=== PATIENT | male | born 1935 | race Caucasian/White ===

== ENCOUNTER 2021-11-14 19:59 | Inpatient (IN) | payer MEDICARE, BC ==
[2021-11-14] MEDS ORDERED: ACETAMINOPHEN TAB 325 MG TAB PO STA (21:39)
--- NOTE | 2021-11-14 21:51 | ED ---
Fever HPI - General Chief Complaint: Fever Stated Complaint: Blood problem, Difficulty Breathing, Cough Time Seen by Provider: 11/14/21 21:39 Source: patient Mode of arrival: wheelchair Limitations: no limitations - History of Present Illness Initial Comments: This patient is an 86-year-old man with history of lung cancer who presents to have evaluation for fever. The patient had received Q Blake infusion today at [facility] he had gone home and then this evening had developed a fever. The patient also has a little bit of cough. Most of the history is from the patient's son as the patient is very hard of hearing at the moment and appears to have some underlying delirium. Patient denies pain. No nausea or vomiting. No change in bowel movements or urination. Patient's son had phoned the patient's oncologist and they were instructed to go to the emergency department to have evaluation. MD Complaint: fever -: hour(s) Temperature Source: oral Context: on chemotherapy Associated Symptoms: cough Treatments Prior to Arrival: none - Related Data Home Medications Medication Instructions Recorded Confirmed Albuterol Sulfate [Albuterol 1 - 2 puff INHALATION RT-Q4H PRN 09/15/21 11/14/21 Sulfate Hfa] Apixaban [Eliquis] 5 mg PO BID 09/15/21 11/14/21 Cholecalciferol [Vitamin D3 (25 100 mcg PO DAILY 09/15/21 11/14/21 Mcg = 1000 Iu)] Ferrous Sulfate [Iron (65 MG 650 mg PO DAILY 09/15/21 11/14/21 Elemental)] Fluticasone Propion/Salmeterol 1 - 2 puff INHALATION RT-BID 09/15/21 11/14/21 [Fluticasone-Salmeterol 250-50] Folic Acid 0.8 mg PO DAILY 09/15/21 11/14/21 Nystatin 100,000 Unit/ml Susp 5 ml PO QID PRN 09/15/21 11/14/21 [Mycostatin Oral Susp] [place]-3 Fatty Acids/Fish Oil [Fish 1 cap PO W/LUNCH 09/15/21 11/14/21 Oil 1,000 mg Softgel] Tamsulosin HCl [Flomax] 0.4 mg PO HS 09/15/21 11/14/21 Vitamin A Acetate [Vitamin A] 10,000 unit PO W/LUNCH 09/15/21 11/14/21 Ipratropium Nebulized [Atrovent 0.5 mg INHALATION RT-QID 11/14/21 11/14/21 Nebulized 0.2 MG/ML] Allergies Allergy/AdvReac Type Severity Reaction Status Date / Time Sulfa (Sulfonamide Allergy Unknown Verified 11/14/21 22:29 Antibiotics) Review of Systems ROS Statement: Those systems with pertinent positive or pertinent negative responses have been documented in the HPI. ROS Other: All systems not noted in ROS Statement are negative. Constitutional: Reports: fever, chills, weakness Respiratory: Reports: cough. Denies: dyspnea, hemoptysis Cardiovascular: Denies: chest pain, edema, syncope Gastrointestinal: Denies: abdominal pain, vomiting, diarrhea Genitourinary: Denies: dysuria, hematuria Musculoskeletal: Denies: back pain Skin: Denies: rash Neurological: Denies: headache, weakness Past Medical History Past Medical History: Pneumonia Additional Past Medical History / Comment(s): liver cancer, lung cancer History of Any Multi-Drug Resistant Organisms: None Reported Past Surgical History: Tonsillectomy Additional Past Surgical History / Comment(s): liver surgery Past Psychological History: No Psychological Hx Reported Smoking Status: Former smoker Past Alcohol Use History: None Reported Past Drug Use History: None Reported - Past Family History Father Family Medical History: Cancer Additional Family Medical History / Comment(s): Throat cancer Mother History Unknown: Yes General Exam Limitations: no limitations General appearance: alert Head exam: Present: atraumatic, normocephalic Eye exam: Present: normal appearance. Absent: scleral icterus, conjunctival injection ENT exam: Present: normal oropharynx Neck exam: Present: normal inspection, full ROM. Absent: meningismus Respiratory exam: Present: respiratory distress, rales, rhonchi. Absent: normal lung sounds bilaterally, wheezes Cardiovascular Exam: Present: normal rhythm, tachycardia, normal heart sounds. Absent: systolic murmur, diastolic murmur, rubs, gallop GI/Abdominal exam: Present: soft. Absent: distended, tenderness, guarding, rebound, rigid, mass, pulsatile mass Extremities exam: Present: normal inspection, normal capillary refill. Absent: pedal edema, calf tenderness Back exam: Present: normal inspection. Absent: CVA tenderness (R), CVA tenderness (L) Neurological exam: Present: alert Skin exam: Present: warm, dry, intact, normal color. Absent: rash Course Vital Signs 11/14/21 11/14/21 11/14/21 20:37 22:00 23:30 Temperature 101 F H 99.8 F H 101.4 F H Pulse Rate 112 H 101 H 110 H Respiratory 32 H 30 H 28 H Rate Blood Pressure 101/56 117/61 109/58 O2 Sat by Pulse 91 L 94 L 93 L Oximetry Procedures - Sepsis Sepsis Focused Exam #1 Sepsis Focused Exam Date: 11/15/21 Sepsis Focused Exam Time: 02:00 Sepsis Focused Exam Complete: Yes Vital Signs & RN Notes Reviewed: Yes Capillary Refill: < 2 Seconds: Fingers Peripheral Pulses: Normal: Radial (R) Skin Color: Flushed Respiratory Exam: rhonchi Cardiovascular Exam: tachycardia Medical Decision Making - Lab Data Result diagrams: 11/16/21 05:18 11/16/21 05:18 Lab Results 11/14/21 11/14/21 11/14/21 Range/Units 22:43 22:43 22:43 WBC 13.2 H (3.8-10.6) k/uL RBC 4.32 (4.30-5.90) m/uL Hgb 10.7 L (13.0-17.5) gm/dL Hct 35.9 L (39.0-53.0) % MCV 83.2 D (80.0-100.0) fL MCH 24.8 L (25.0-35.0) pg MCHC 29.8 L (31.0-37.0) g/dL RDW 17.2 H (11.5-15.5) % Plt Count 436 (150-450) k/uL MPV 6.7 Neutrophils % 93 % Lymphocytes % 3 % Monocytes % 3 % Eosinophils % 0 % Basophils % 0 % Neutrophils # 12.2 H (1.3-7.7) k/uL Lymphocytes # 0.4 L (1.0-4.8) k/uL Monocytes # 0.4 (0-1.0) k/uL Eosinophils # 0.0 (0-0.7) k/uL Basophils # 0.1 (0-0.2) k/uL Hypochromasia Marked Anisocytosis Slight PT 11.6 (9.0-12.0) sec INR 1.1 (<1.2) APTT 22.9 (22.0-30.0) sec Sodium (137-145) mmol/L Potassium (3.5-5.1) mmol/L Chloride (98-107) mmol/L Carbon Dioxide (22-30) mmol/L Anion Gap mmol/L BUN (9-20) mg/dL Creatinine (0.66-1.25) mg/dL Est GFR (CKD-EPI)AfAm (>60 ml/min/1.73 sqM) Est GFR (CKD-EPI)NonAf (>60 ml/min/1.73 sqM) Glucose (74-99) mg/dL Plasma Lactic Acid [place] (0.7-2.0) mmol/L Calcium (8.4-10.2) mg/dL Total Bilirubin (0.2-1.3) mg/dL AST (17-59) U/L ALT (4-49) U/L Alkaline Phosphatase (38-126) U/L Total Protein (6.3-8.2) g/dL Albumin (3.5-5.0) g/dL Procalcitonin (0.02-0.09) ng/mL Urine Color Yellow Urine Appearance Clear (Clear) Urine pH 5.0 (5.0-8.0) Ur Specific Palmer 1.021 (1.001-1.035) Urine Protein Trace H (Negative) Urine Glucose (UA) Trace H (Negative) Urine Ketones Negative (Negative) Urine Blood Negative (Negative) Urine Nitrite Negative (Negative) Urine Bilirubin Negative (Negative) Urine Urobilinogen <2.0 (<2.0) mg/dL Ur Leukocyte Esterase Negative (Negative) Coronavirus (PCR) (Not Detectd) Influenza Type A RNA (Not Detectd) Influenza Type B (PCR) (Not Detectd) 11/14/21 11/14/21 11/14/21 Range/Units 22:43 22:43 22:43 WBC (3.8-10.6) k/uL RBC (4.30-5.90) m/uL Hgb (13.0-17.5) gm/dL Hct (39.0-53.0) % MCV (80.0-100.0) fL MCH (25.0-35.0) pg MCHC (31.0-37.0) g/dL RDW (11.5-15.5) % Plt Count (150-450) k/uL MPV Neutrophils % % Lymphocytes % % Monocytes % % Eosinophils % % Basophils % % Neutrophils # (1.3-7.7) k/uL Lymphocytes # (1.0-4.8) k/uL Monocytes # (0-1.0) k/uL Eosinophils # (0-0.7) k/uL Basophils # (0-0.2) k/uL Hypochromasia Anisocytosis PT (9.0-12.0) sec INR (<1.2) APTT (22.0-30.0) sec Sodium 133 L (137-145) mmol/L Potassium 4.3 (3.5-5.1) mmol/L Chloride 103 (98-107) mmol/L Carbon Dioxide 23 (22-30) mmol/L Anion Gap 7 mmol/L BUN 17 (9-20) mg/dL Creatinine 0.69 (0.66-1.25) mg/dL Est GFR (CKD-EPI)AfAm >90 (>60 ml/min/1.73 sqM) Est GFR (CKD-EPI)NonAf 85 (>60 ml/min/1.73 sqM) Glucose 111 H (74-99) mg/dL Plasma Lactic Acid [place] 1.7 (0.7-2.0) mmol/L Calcium 8.9 (8.4-10.2) mg/dL Total Bilirubin 0.5 (0.2-1.3) mg/dL AST 20 (17-59) U/L ALT 10 (4-49) U/L Alkaline Phosphatase 83 (38-126) U/L Total Protein 6.3 (6.3-8.2) g/dL Albumin 3.2 L (3.5-5.0) g/dL Procalcitonin (0.02-0.09) ng/mL Urine Color Urine Appearance (Clear) Urine pH (5.0-8.0) Ur Specific Palmer (1.001-1.035) Urine Protein (Negative) Urine Glucose (UA) (Negative) Urine Ketones (Negative) Urine Blood (Negative) Urine Nitrite (Negative) Urine Bilirubin (Negative) Urine Urobilinogen (<2.0) mg/dL Ur Leukocyte Esterase (Negative) Coronavirus (PCR) (Not Detectd) Influenza Type A RNA Not Detected (Not Detectd) Influenza Type B (PCR) Not Detected (Not Detectd) 11/14/21 11/14/21 Range/Units 22:43 22:43 WBC (3.8-10.6) k/uL RBC (4.30-5.90) m/uL Hgb (13.0-17.5) gm/dL Hct (39.0-53.0) % MCV (80.0-100.0) fL MCH (25.0-35.0) pg MCHC (31.0-37.0) g/dL RDW (11.5-15.5) % Plt Count (150-450) k/uL MPV Neutrophils % % Lymphocytes % % Monocytes % % Eosinophils % % Basophils % % Neutrophils # (1.3-7.7) k/uL Lymphocytes # (1.0-4.8) k/uL Monocytes # (0-1.0) k/uL Eosinophils # (0-0.7) k/uL Basophils # (0-0.2) k/uL Hypochromasia Anisocytosis PT (9.0-12.0) sec INR (<1.2) APTT (22.0-30.0) sec Sodium (137-145) mmol/L Potassium (3.5-5.1) mmol/L Chloride (98-107) mmol/L Carbon Dioxide (22-30) mmol/L Anion Gap mmol/L BUN (9-20) mg/dL Creatinine (0.66-1.25) mg/dL Est GFR (CKD-EPI)AfAm (>60 ml/min/1.73 sqM) Est GFR (CKD-EPI)NonAf (>60 ml/min/1.73 sqM) Glucose (74-99) mg/dL Plasma Lactic Acid [place] (0.7-2.0) mmol/L Calcium (8.4-10.2) mg/dL Total Bilirubin (0.2-1.3) mg/dL AST (17-59) U/L ALT (4-49) U/L Alkaline Phosphatase (38-126) U/L Total Protein (6.3-8.2) g/dL Albumin (3.5-5.0) g/dL Procalcitonin 0.82 H (0.02-0.09) ng/mL Urine Color Urine Appearance (Clear) Urine pH (5.0-8.0) Ur Specific Palmer (1.001-1.035) Urine Protein (Negative) Urine Glucose (UA) (Negative) Urine Ketones (Negative) Urine Blood (Negative) Urine Nitrite (Negative) Urine Bilirubin (Negative) Urine Urobilinogen (<2.0) mg/dL Ur Leukocyte Esterase (Negative) Coronavirus (PCR) Not Detected (Not Detectd) Influenza Type A RNA (Not Detectd) Influenza Type B (PCR) (Not Detectd) - EKG Data -: EKG Interpreted by Ct EKG shows normal: sinus rhythm, intervals (KS interval 221 ms, prolonged consistent with first-degree AV block. QRS duration 148 ms, prolonged consistent with a right bundle-branch block. QTC 49 ms, normal.), QRS complexes (There is a right bundle-branch block and a left anterior fascicular block.) Rate: tachycardia (Rate 106 bpm) Disposition Clinical Impression: Pneumonia, Sepsis Disposition: ADMITTED IP TO THIS HOSP Condition: Poor Is patient prescribed a controlled substance at d/c from ED?: No
--- NOTE | 2021-11-14 22:42 | XR ---
EXAMINATION TYPE: XR chest 1V portable DATE OF EXAM: 11/14/2021 COMPARISON: 09/18/2021 HISTORY: Fever TECHNIQUE: Single view FINDINGS: there is some airspace infiltrate right lower lobe. There is blunting right costophrenic angle. Heart is enlarged. Left lung is fairly clear. No heart failure. There is left central venous catheter with tip in the superior vena cava. IMPRESSION: Right lower lobe pneumonia and right pleural effusion without change. There is significant clearing o f left lower lobe pneumonia compared to old exam. No heart failure seen.
[2021-11-14 23:07] LABS: Anisocytosis Slight; Basophils # (A) 0.1 k/uL (0-0.2); Basophils % (A) 0 %; Eosinophils % (A) 0 %; HCT 35.9 % (39.0-53.0); HGB 10.7 gm/dL (13.0-17.5); Hypochromasia Marked; Lymphocytes # (A) 0.4 k/uL (1.0-4.8); Lymphocytes % (A) 3 %; MCH 24.8 pg (25.0-35.0); MCHC 29.8 g/dL (31.0-37.0); Mean Platelet Volume 6.7; Monocytes # (A) 0.4 k/uL (0-1.0); Monocytes % (A) 3 %; Neutrophils # (A) 12.2 k/uL (1.3-7.7); Neutrophils % (A) 93 %; Platelet Count 436 k/uL (150-450); RBC 4.32 m/uL (4.30-5.90); RDW 17.2 % (11.5-15.5); WBC 13.2 k/uL (3.8-10.6)
[2021-11-14 23:10] LABS: MCV 83.2 fL (80.0-100.0)
[2021-11-14 23:17] LABS: Appearance,Urine Clear (Clear); Bilirubin,Urine Negative (Negative); Blood,Urine Negative (Negative); Color,Urine Yellow; Glucose,Urine (UA) Trace (Negative); Ketones,Urine Negative (Negative); Leukocyte Esterase,Urine Negative (Negative); Nitrite,Urine Negative (Negative); Protein,Urine Trace (Negative); Specific Gravity,Urine 1.021 (1.001-1.035); Urobilinogen,Urine <2.0 mg/dL (<2.0)
[2021-11-14 23:19] LABS: ALT 10 U/L (4-49); AST 20 U/L (17-59); African American GFR (CKD) >90 (>60 ml/min/1.73 sqM); Albumin 3.2 g/dL (3.5-5.0); Alkaline Phosphatase 83 U/L (38-126); Anion Gap 7 mmol/L; Blood Urea Nitrogen 17 mg/dL (9-20); Calcium 8.9 mg/dL (8.4-10.2); Carbon Dioxide 23 mmol/L (22-30); Chloride 103 mmol/L (98-107); Glucose 111 mg/dL (74-99); Non-African American GFR(CKD) 85 (>60 ml/min/1.73 sqM); Potassium 4.3 mmol/L (3.5-5.1); Sodium 133 mmol/L (137-145); Total Bilirubin 0.5 mg/dL (0.2-1.3); Total Protein 6.3 g/dL (6.3-8.2)
[2021-11-14 23:20] LABS: INR 1.1 (<1.2); Partial Thromboplastin Time 22.9 sec (22.0-30.0); Prothrombin Time 11.6 sec (9.0-12.0)
[2021-11-14] MEDS: SODIUM CHLORIDE 0.9% 1,000 ML IV SCH (23:30)
[2021-11-15] MEDS: SODIUM CHLORIDE 0.9% 500 ML 500 ML IV SCH ×3 (00:25→01:35)
[2021-11-15] MEDS ORDERED: PNEUMONIA PROTOCOL UTILIZED 1 EACH MISC PO PRN (00:56)
[2021-11-15] MEDS ORDERED: AZITHROMYCIN 500 MG in SODIUM CHLORIDE 0.9% 250 ML IVPB STA (00:56)
[2021-11-15] MEDS: SODIUM CHLORIDE 0.9% 1,000 ML IV SCH ×3 (04:39→22:24)
[2021-11-15] MEDS ORDERED: IPRATROPIUM-ALBUTEROL 3 ML NEB INHALATION PRN ×2 (07:12)
[2021-11-15] MEDS ORDERED: ACETAMINOPHEN TAB 325 MG TAB PO PRN (07:12)
[2021-11-15] MEDS: CHOLECALCIFEROL 25 MCG (1000 IU) TABLET PO SCH (07:22)
[2021-11-15] MEDS: FOLIC ACID 1 MG TAB PO SCH (07:23)
[2021-11-15] MEDS: APIXABAN 5 MG TAB PO SCH ×2 (07:23→20:55)
[2021-11-15] MEDS: FERROUS SULFATE 325 MG TAB PO SCH ×2 (07:23→15:42)
[2021-11-15] MEDS: SYMBICORT 80-4.5 MCG INHALER INHALATION SCH ×2 (08:24→21:10)
[2021-11-15] MEDS: IPRATROPIUM-ALBUTEROL 3 ML NEB INHALATION SCH ×4 (08:25→21:10)
[2021-11-15 11:21] LABS: Anisocytosis Slight; Basophils # (A) 0.1 k/uL (0-0.2); Basophils % (A) 1 %; Eosinophils # (A) 0.1 k/uL (0-0.7); Eosinophils % (A) 1 %; HCT 33.5 % (39.0-53.0); HGB 9.4 gm/dL (13.0-17.5); Hypochromasia Marked; Lymphocytes # (A) 0.7 k/uL (1.0-4.8); Lymphocytes % (A) 5 %; MCH 24.3 pg (25.0-35.0); MCHC 28.1 g/dL (31.0-37.0); MCV 86.4 fL (80.0-100.0); Mean Platelet Volume 7.2; Monocytes # (A) 0.6 k/uL (0-1.0); Monocytes % (A) 4 %; Neutrophils # (A) 12.5 k/uL (1.3-7.7); Neutrophils % (A) 89 %; Platelet Count 369 k/uL (150-450); RBC 3.88 m/uL (4.30-5.90); RDW 17.1 % (11.5-15.5); WBC 13.9 k/uL (3.8-10.6)
[2021-11-15] MEDS ORDERED: NON FORMULARY DRUG (Omega-3 Fatty Acids/Fish Oil [Fish Oil 1,000 Mg Softgel] 1 EACH Capsul PO SCH (12:30)
--- NOTE | 2021-11-15 13:54 | P.HPIM ---
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 Patient had received chemoinfusion at [facility] and had gone home and later developed fever. Was also complaining of shortness of breath and cough. On admission T-max was 101.4. Patient was tachycardic and tachypneic and pulse ox 93% on room air. Chest x-ray showed right lower lobe pneumonia and right pleural effusion without change. There is significant clearing of left lower lobe pneumonia compared to old exam. No heart failure seen. Laboratory data showed WBC 13.2 hemoglobin 10.7 and platelets 436 RDW 17.2 Sodium 133 potassium 4.3 chloride 103 BUN 17 and creatinine 0.69 lactic acid 1.7 liver enzymes are not elevated albumin 3.2 urinalysis is negative for infection Coronavirus PCR, influenza A and B not detected. Procalcitonin is pending. patient is a poor historian and hard of hearing. Review of Systems complete review of systems could not be obtained from the patient except as per HPI. Past Medical History Past Medical History: COPD, Deep Vein Thrombosis (DVT), Pneumonia, Prostate Disorder, Pulmonary Embolus (PE) Additional Past Medical History / Comment(s): liver cancer, lung cancer, aspiration pneumonia, thrush History of Any Multi-Drug Resistant Organisms: None Reported Past Surgical History: Tonsillectomy Additional Past Surgical History / Comment(s): liver surgery, stomach surgery in 1999. Past Anesthesia/Blood Transfusion Reactions: No Reported Reaction Past Psychological History: No Psychological Hx Reported Additional Psychological History / Comment(s): Pt was residing in [place] but son moved pt [place] last fall 2020. Pt's spouse last 2020. Pt resides with his son and haider in law. Pt is normally alert and oriented to person, place and time. Son manages pt's medications and son states pt is pretty good with washing up and dressing. Smoking Status: Former smoker Past Alcohol Use History: None Reported Additional Past Alcohol Use History / Comment(s): Pt smoked in the 1960s. Past Drug Use History: None Reported - Past Family History Father Family Medical History: Cancer Additional Family Medical History / Comment(s): Throat cancer Mother History Unknown: Yes Medications and Allergies Home Medications Medication Instructions Recorded Confirmed Type Albuterol Sulfate [Albuterol 1 - 2 puff INHALATION RT-Q4H PRN 09/15/21 11/14/21 History Sulfate Hfa] Apixaban [Eliquis] 5 mg PO BID 09/15/21 11/14/21 History Cholecalciferol [Vitamin D3 (25 100 mcg PO DAILY 09/15/21 11/14/21 History Mcg = 1000 Iu)] Ferrous Sulfate [Iron (65 MG 650 mg PO DAILY 09/15/21 11/14/21 History Elemental)] Fluticasone Propion/Salmeterol 1 - 2 puff INHALATION RT-BID 09/15/21 11/14/21 History [Fluticasone-Salmeterol 250-50] Folic Acid 0.8 mg PO DAILY 09/15/21 11/14/21 History Nystatin 100,000 Unit/ml Susp 5 ml PO QID PRN 09/15/21 11/14/21 History [Mycostatin Oral Susp] [place]-3 Fatty Acids/Fish Oil [Fish 1 cap PO W/LUNCH 09/15/21 11/14/21 History Oil 1,000 mg Softgel] Tamsulosin HCl [Flomax] 0.4 mg PO HS 09/15/21 11/14/21 History Vitamin A Acetate [Vitamin A] 10,000 unit PO W/LUNCH 09/15/21 11/14/21 History Ipratropium Nebulized [Atrovent 0.5 mg INHALATION RT-QID 11/14/21 11/14/21 History Nebulized 0.2 MG/ML] Allergies Allergy/AdvReac Type Severity Reaction Status Date / Time Sulfa (Sulfonamide Allergy Unknown Verified 11/14/21 22:29 Antibiotics) Physical Exam Vitals: Vital Signs Temp Pulse Pulse Resp BP BP Pulse Ox 11/15/21 08:34 78 16 11/15/21 08:25 77 16 11/15/21 07:54 97.9 F 88 17 102/64 95 11/15/21 04:11 97.5 F L 91 20 101/62 94 L 11/15/21 02:44 98.5 F 90 20 92/59 93 L 11/15/21 01:47 98.8 F 89 24 110/56 93 L 11/14/21 23:30 101.4 F H 110 H 28 H 109/58 93 L 11/14/21 22:00 99.8 F H 101 H 30 H 117/61 94 L 11/14/21 20:37 101 F H 112 H 32 H 101/56 91 L Intake and Output 11/14/21 11/15/21 11/15/21 22:59 06:59 14:59 Other: # Voids 2 Weight 71.214 kg 71.214 kg PHYSICAL EXAMINATION: Patient is lying in the bed comfortably, no acute distress, awake alert and oriented.hard of hearing.. HEENT: Normocephalic. Neck is supple. Pupils reactive. Nostrils clear. Oral cavity is moist. Neck reveals no JVD, carotid bruits, or thyromegaly. CHEST EXAMINATION: Trachea is central. Symmetrical expansion. bibasilar crackles and no wheezing.. CARDIAC: Normal S1, S2 with no gallops. No murmurs ABDOMEN: Soft. Bowel sounds normal. No organomegaly. No abdominal bruits. Extremities: reveal no edema. No clubbing or cyanosis Neurologically awake, alert, oriented x2-3 with well-coordinated movements. hard of hearing. No focal deficits noted Skin: No rash or skin lesions. Psychiatric: Coperative. could not be assessed completely. Musculoskeletal: No joint swelling or deformity. Normal range of motion. Results CBC & Chem 7: 11/15/21 10:41 11/14/21 22:43 Labs: Abnormal Lab Results - Last 24 Hours (Table) 11/14/21 11/14/21 11/14/21 Range/Units 22:43 22:43 22:43 WBC 13.2 H (3.8-10.6) k/uL Hgb 10.7 L (13.0-17.5) gm/dL Hct 35.9 L (39.0-53.0) % MCH 24.8 L (25.0-35.0) pg MCHC 29.8 L (31.0-37.0) g/dL RDW 17.2 H (11.5-15.5) % Neutrophils # 12.2 H (1.3-7.7) k/uL Lymphocytes # 0.4 L (1.0-4.8) k/uL Sodium 133 L (137-145) mmol/L Glucose 111 H (74-99) mg/dL Albumin 3.2 L (3.5-5.0) g/dL Urine Protein Trace H (Negative) Urine Glucose (UA) Trace H (Negative) Thrombosis Risk Factor Assmnt - DVT/VTE Prophylaxis DVT/VTE Prophylaxis: Pharmacologic Prophylaxis ordered - Choose All That Apply Any of the Below Risk Factors Present?: Yes Each Factor Represents 1 point: Abnormal pulmonary function (COPD), Serious lung disease incl. pneumonia (< 1month) Other Risk Factors: Yes Each Risk Factor Represents 3 Points: Age 75 years or older, History of DVT/PE Other congenital or acquired thrombophilia - If yes, enter type in comment: No Thrombosis Risk Factor Assessment Total Risk Factor Score: 8 Thrombosis Risk Factor Assessment Level: High Risk Assessment and Plan Assessment: Right lower lobe pneumonia and pleural effusion. Possible aspiration. Sepsis secondary to above History of DVT/PE on anticoagulation Lung cancer on chemo/immunotherapy at [facility] COPD Previous history of smoking DVT prophylaxis with heparin subcu Plan: Patient was given a dose of ceftriaxone and azithromycin in the ER. Antibiotics will be changed to Zosyn and speech and swallow evaluation consult for possible slow aspiration. Continue with duo nebs as needed. Gentle IV hydration and monitor closely. Prognosis guarded at this time. Time with Patient: Greater than 30
[2021-11-15] MEDS: AZITHROMYCIN 500 MG TAB PO SCH (14:53)
[2021-11-15] MEDS: PIPERACILLIN-TAZOBACTAM 3.375 GM in SODIUM CHLORIDE 0.9% 100 ML IVPB SCH ×2 (15:42→23:43)
[2021-11-15] MEDS: TAMSULOSIN 0.4 MG CAP.ER.24H PO SCH (20:55)
--- NOTE | 2021-11-16 08:37 | XR ---
EXAMINATION TYPE: XR chest 2V DATE OF EXAM: 11/16/2021 COMPARISON: NONE TECHNIQUE: PA and lateral views submitted. HISTORY: Cough FINDINGS: Mediport catheter noted with bilateral infiltrate and pleural effusion. Surgical changes in the abdom en. Biapical pleural thickening. Diffuse osteopenia and arthropathy shoulders. No pneumothorax. Under lying COPD noted. Degenerative changes spine. IMPRESSION: 1. Diffuse pleural-parenchymal changes correlate for CHF versus diffuse pneumonia.
[2021-11-16] MEDS: IPRATROPIUM-ALBUTEROL 3 ML NEB INHALATION SCH ×4 (08:40→20:04)
[2021-11-16] MEDS: SYMBICORT 80-4.5 MCG INHALER INHALATION SCH ×2 (08:45→20:04)
[2021-11-16 09:00] LABS: Basophils # (A) 0.05 X 10*3/uL (0.00-0.10); Basophils % (A) 0.7 %; Eosinophils # (A) 0.18 X 10*3/uL (0.04-0.35); Eosinophils % (A) 2.6 %; HCT 29.5 % (39.6-50.0); HGB 8.5 g/dL (13.0-17.0); Immature Grans, Automated 0.1 %; Lymphocytes # (A) 0.79 X 10*3/uL (0.90-5.00); Lymphocytes % (A) 11.6 %; MCH 24.1 pg (27.0-32.0); MCHC 28.8 g/dL (32.0-37.0); MCV 83.6 fL (80.0-97.0); Mean Platelet Volume 9.4 fL (9.5-12.2); Monocytes # (A) 0.56 X 10*3/uL (0.20-1.00); Monocytes % (A) 8.2 %; NRBC Per 100 WBC 0 /100 WBCS (0.0-0.0); Neutrophils # (A) 5.22 X 10*3/uL (1.80-7.70); Neutrophils % (A) 76.8 %; Platelet Count 348 X 10*3/uL (140-440); RBC 3.53 X 10*6/uL (4.40-5.60); RDW 17.5 % (11.5-14.5); WBC 6.81 X 10*3/uL (4.50-10.00)
[2021-11-16 10:14] LABS: African American GFR (CKD) 97.7 (60.0-200.0); Anion Gap 9.5 mmol/L (10.00-18.00); BUN/Creat Ratio 15.71 Ratio (12.00-20.00); Calcium 8.6 mg/dL (8.7-10.3); Carbon Dioxide 23.5 mmol/L (20.0-27.5); Non-African American GFR(CKD) 84.3 (60.0-200.0); Potassium 4.3 mmol/L (3.5-5.5)
[2021-11-16] MEDS: FOLIC ACID 1 MG TAB PO SCH (11:00)
[2021-11-16] MEDS: CHOLECALCIFEROL 25 MCG (1000 IU) TABLET PO SCH (11:00)
[2021-11-16] MEDS: FERROUS SULFATE 325 MG TAB PO SCH ×2 (11:00→17:24)
[2021-11-16] MEDS: PIPERACILLIN-TAZOBACTAM 3.375 GM in SODIUM CHLORIDE 0.9% 100 ML IVPB SCH ×2 (11:00→17:24)
[2021-11-16] MEDS: APIXABAN 5 MG TAB PO SCH ×2 (11:00→20:40)
[2021-11-16] MEDS: AZITHROMYCIN 500 MG TAB PO SCH (11:03)
[2021-11-16] MEDS: TAMSULOSIN 0.4 MG CAP.ER.24H PO SCH (20:40)
[2021-11-17] MEDS: PIPERACILLIN-TAZOBACTAM 3.375 GM in SODIUM CHLORIDE 0.9% 100 ML IVPB SCH ×2 (00:05→09:09)
[2021-11-17 02:06] VITALS: RESP 17; TEMP 97.6
[2021-11-17 07:52] VITALS: BP 101/64
[2021-11-17] MEDS: IPRATROPIUM-ALBUTEROL 3 ML NEB INHALATION SCH ×2 (08:23→11:55)
[2021-11-17] MEDS: SYMBICORT 80-4.5 MCG INHALER INHALATION SCH (08:43)
[2021-11-17] MEDS: FERROUS SULFATE 325 MG TAB PO SCH (09:10)
[2021-11-17] MEDS: APIXABAN 5 MG TAB PO SCH (09:10)
[2021-11-17] MEDS: FOLIC ACID 1 MG TAB PO SCH (09:10)
[2021-11-17] MEDS: CHOLECALCIFEROL 25 MCG (1000 IU) TABLET PO SCH (09:10)
[2021-11-17 09:25] LABS: Basophils # (A) 0.04 X 10*3/uL (0.00-0.10); Basophils % (A) 0.6 %; Eosinophils % (A) 4.2 %; HCT 31.4 % (39.6-50.0); HGB 9.4 g/dL (13.0-17.0); Immature Grans, Automated 0.6 %; Lymphocytes # (A) 0.83 X 10*3/uL (0.90-5.00); Lymphocytes % (A) 11.5 %; MCH 24.9 pg (27.0-32.0); MCHC 29.9 g/dL (32.0-37.0); MCV 83.3 fL (80.0-97.0); Mean Platelet Volume 9.7 fL (9.5-12.2); Monocytes # (A) 0.56 X 10*3/uL (0.20-1.00); Monocytes % (A) 7.8 %; NRBC Per 100 WBC 0 /100 WBCS (0.0-0.0); Neutrophils # (A) 5.44 X 10*3/uL (1.80-7.70); Neutrophils % (A) 75.3 %; Platelet Count 357 X 10*3/uL (140-440); RBC 3.77 X 10*6/uL (4.40-5.60); RDW 17.4 % (11.5-14.5); WBC 7.21 X 10*3/uL (4.50-10.00)
[2021-11-17 09:26] LABS: Anion Gap 8.6 mmol/L (10.00-18.00); BUN/Creat Ratio 12.17 Ratio (12.00-20.00); Blood Urea Nitrogen 7.3 mg/dL (9.0-27.0); Calcium 8.7 mg/dL (8.7-10.3); Carbon Dioxide 25.4 mmol/L (20.0-27.5); Non-African American GFR(CKD) 89.8 (60.0-200.0)
--- NOTE | 2021-11-17 10:38 | P.PN ---
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 Patient had received chemoinfusion at [facility] and had gone home and later developed fever. Was also complaining of shortness of breath and cough. On admission T-max was 101.4. Patient was tachycardic and tachypneic and pulse ox 93% on room air. Chest x-ray showed right lower lobe pneumonia and right pleural effusion without change. There is significant clearing of left lower lobe pneumonia compared to old exam. No heart failure seen. Laboratory data showed WBC 13.2 hemoglobin 10.7 and platelets 436 RDW 17.2 Sodium 133 potassium 4.3 chloride 103 BUN 17 and creatinine 0.69 lactic acid 1.7 liver enzymes are not elevated albumin 3.2 urinalysis is negative for infection Coronavirus PCR, influenza A and B not detected. Procalcitonin is pending. patient is a poor historian and hard of hearing. 11/16/2021. Patient is currently sitting up in the chair comfortably. Awake alert and oriented x3. Breathing status is better today. Patient has been afebrile. No nausea vomiting abdominal pain or diarrhea. Patient was seen by speech and swallow evaluation and recommends dysphagia level 2 diet and honey thick liquids and aspiration precautions. Otherwise patient is being continued on antibiotics in the form of Zosyn. Laboratory data showed WBC 6.8 hemoglobin 8.5 and platelets 348 sodium 138 potassium 4.3 chloride 105 BUN 11 and creatinine 0.7 and calcium 8.6. Procalcitonin level was 0.82. Current medications reviewed. Objective - Vital Signs Vital signs: Vital Signs Temp 98.0 F 11/16/21 14:00 Pulse 80 11/16/21 14:00 Resp 21 11/16/21 14:00 BP 131/64 11/16/21 14:00 Pulse Ox 93 L 11/16/21 14:00 Intake & Output 11/15/21 11/16/21 11/16/21 18:59 06:59 18:59 Output Total 300 500 Balance -300 -500 Output: Urine 300 500 Other: # Voids 1 # Bowel Movements 1 - Exam PHYSICAL EXAMINATION: Patient is lying in the bed comfortably, no acute distress, awake alert and o riented.hard of hearing.. HEENT: Normocephalic. Neck is supple. Pupils reactive. Nostrils clear. Oral cavity is moist. Neck reveals no JVD, carotid bruits, or thyromegaly. CHEST EXAMINATION: Trachea is central. Symmetrical expansion. bibasilar improved air entry and no wheezing.. CARDIAC: Normal S1, S2 with no gallops. No murmurs ABDOMEN: Soft. Bowel sounds normal. No organomegaly. No abdominal bruits. Extremities: reveal no edema. No clubbing or cyanosis Neurologically awake, alert, oriented x2-3 with well-coordinated movements. hard of hearing. No focal deficits noted Skin: No rash or skin lesions. Psychiatric: Coperative. could not be assessed completely. Musculoskeletal: No joint swelling or deformity. Normal range of motion. - Labs CBC & Chem 7: 11/17/21 04:52 11/17/21 04:52 Labs: Abnormal Lab Results - Last 24 Hours (Table) 11/14/21 11/16/21 11/16/21 Range/Units 22:43 05:18 05:18 RBC 3.53 L (4.40-5.60) X 10*6/uL Hgb 8.5 L (13.0-17.0) g/dL Hct 29.5 L (39.6-50.0) % MCH 24.1 L (27.0-32.0) pg MCHC 28.8 L (32.0-37.0) g/dL RDW 17.5 H (11.5-14.5) % MPV 9.4 L (9.5-12.2) fL Lymphocytes # 0.79 L (0.90-5.00) X 10*3/uL Anion Gap 9.50 L (10.00-18.00) mmol/L Calcium 8.6 L (8.7-10.3) mg/dL Procalcitonin 0.82 H (0.02-0.09) ng/mL Microbiology - Last 24 Hours (Table) 11/14/21 23:02 Blood Culture - Preliminary Blood No Growth after 24 hours 11/14/21 22:47 Blood Culture - Preliminary Blood No Growth after 24 hours 11/15/21 17:01 Gram Stain - Preliminary Sputum Sputum Culture - Preliminary Assessment and Plan Assessment: Right lower lobe pneumonia and pleural effusion. Possible aspiration. Sepsis secondary to above History of DVT/PE on anticoagulation Lung cancer on chemo/immunotherapy at [facility] COPD Previous history of smoking DVT prophylaxis with heparin subcu Plan: Patient was given a dose of ceftriaxone and azithromycin in the ER. Antibiotics will be changed to Zosyn and speech and swallow evaluation consult for possible slow aspiration. A hazel was recommended dysphagia level II diet and aspiration precautions. Continue with duo nebs as needed. IV fluids have been discontinued and increase oral intake. PTOT consult and possible discharge in next 24-48 hours.. Prognosis guarded at this time. Time with Patient: Greater than 30
[2021-11-17 12:10] VITALS: PULSE 77
== END 2021-11-17 14:30 | disposition home health service (06) | DRG 871 ==
LOC: EC 19:59 → 4SSUR 11-15 00:56
PROVIDERS: ADMIT Hospitalist; ATTEND Hospitalist
DX: A41.9 Sepsis, unspecified organism (principal); J18.9 Pneumonia, unspecified organism; J69.0 Pneumonitis due to inhalation of food and vomit; J44.0 Chronic obstructive pulmonary disease with (acute) lower respiratory infection; C34.90 Malignant neoplasm of unspecified part of unspecified bronchus or lung; J91.8 Pleural effusion in other conditions classified elsewhere; Z20.822 Contact with and (suspected) exposure to COVID-19; H91.90 Unspecified hearing loss, unspecified ear; N40.0 Benign prostatic hyperplasia without lower urinary tract symptoms; Z86.718 Personal history of other venous thrombosis and embolism; Z86.711 Personal history of pulmonary embolism; Z87.891 Personal history of nicotine dependence; Z85.05 Personal history of malignant neoplasm of liver; Z85.118 Personal history of other malignant neoplasm of bronchus and lung; Z79.01 Long term (current) use of anticoagulants; Z80.8 Family history of malignant neoplasm of other organs or systems
CPT/HCPCS: 36415; 71045; 71046; 80048; 80053; 81003; 83605; 84145; 85025; 85610; 85730; 87040; 87070; 87205; 87502; 87635; 93005; 94640; 96365; 96375; 99284; 99285

== ENCOUNTER 2022-06-16 02:04 | Inpatient (IN) | payer MEDICARE, BC ==
[2022-06-16] MEDS ORDERED: METOPROLOL TARTRATE 5 MG/5 ML VIAL IVP STA ×2 (02:06→02:27)
[2022-06-16] MEDS ORDERED: MORPHINE SULFATE 4 MG/ML SYRINGE IV STA (02:06)
[2022-06-16] MEDS ORDERED: SODIUM CHLORIDE 0.9% 1,000 ML IV STA (02:06)
[2022-06-16] MEDS ORDERED: SODIUM CHLORIDE 0.9% 500 ML 500 ML IV STA (02:06)
--- NOTE | 2022-06-16 02:18 | ED ---
Weakness HPI - General Chief complaint: Shortness of Breath Stated complaint: STEMI Time Seen by Provider: 06/16/22 02:05 Source: EMS, RN notes reviewed, old records reviewed Mode of arrival: EMS - History of Present Illness Initial comments: This is an 87-year-old male to the emergency department for evaluation severe shortness of breath increased cough and congestion worsening weakness chest pain. Patient is short of breath not answer questions well and is in significant distress so is a poor historian MD Complaint: generalized weakness, lack of energy, difficulty walking -: days(s) Location: generalized Severity: severe Severity scale (1-10): 9 Quality: constant Consistency: constant Improves with: none Worsens with: none Context: history of similar Associated Symptoms: chest pain, confusion, shortness of breath - Related Data Home Medications Medication Instructions Recorded Confirmed Ipratropium-Albuterol Nebulize 3 ml INHALATION RT-QID PRN 06/16/22 06/16/22 [Duoneb 0.5 mg-3 mg/3 ml Soln] Previous Rx's Medication Instructions Recorded Ipratropium-Albuterol Nebulize 3 ml INHALATION RT-QID each 06/20/22 [Duoneb 0.5 mg-3 mg/3 ml Soln] Lidocaine Viscous 2% [Xylocaine 30 ml PO TID ml 06/20/22 Viscous] Mag Hydrox/Al Hydrox/Simeth 30 ml PO TID ml 06/20/22 [Maalox] Allergies Allergy/AdvReac Type Severity Reaction Status Date / Time Sulfa (Sulfonamide Allergy Unknown Verified 06/16/22 12:38 Antibiotics) Review of Systems ROS Statement: Those systems with pertinent positive or pertinent negative responses have been documented in the HPI. ROS Other: All systems not noted in ROS Statement are negative. Past Medical History Past Medical History: Pneumonia Additional Past Medical History / Comment(s): liver cancer, lung cancer History of Any Multi-Drug Resistant Organisms: None Reported Past Surgical History: Tonsillectomy Additional Past Surgical History / Comment(s): liver surgery Past Anesthesia/Blood Transfusion Reactions: No Reported Reaction Past Psychological History: No Psychological Hx Reported Smoking Status: Former smoker Past Alcohol Use History: None Reported Past Drug Use History: None Reported - Past Family History Father Family Medical History: Cancer Additional Family Medical History / Comment(s): Throat cancer Mother History Unknown: Yes General Exam General appearance: alert, anxious, in distress Head exam: Present: atraumatic, normocephalic, normal inspection Eye exam: Present: normal appearance, PERRL, EOMI. Absent: scleral icterus, conjunctival injection, periorbital swelling ENT exam: Present: normal exam, mucous membranes moist Neck exam: Present: normal inspection. Absent: tenderness, meningismus, lymphadenopathy Respiratory exam: Present: respiratory distress, wheezes, rales, accessory muscl e use, decreased breath sounds, prolonged expiratory. Absent: rhonchi, stridor Cardiovascular Exam: Present: normal rhythm, tachycardia, normal heart sounds. Absent: systolic murmur, diastolic murmur, rubs, gallop, clicks GI/Abdominal exam: Present: soft, normal bowel sounds. Absent: distended, tenderness, guarding, rebound, rigid Extremities exam: Present: normal inspection, full ROM, normal capillary refill. Absent: tenderness, pedal edema, joint swelling, calf tenderness Back exam: Present: normal inspection Neurological exam: Present: alert, oriented X3, CN II-XII intact Psychiatric exam: Present: normal affect, normal mood Skin exam: Present: warm, dry, intact, normal color. Absent: rash Course Vital Signs 06/16/22 06/16/22 06/16/22 02:05 02:09 02:20 Temperature 98.2 F Pulse Rate 135 H 113 H Respiratory 19 30 H 38 H Rate Blood Pressure 109/61 103/57 O2 Sat by Pulse 96 95 Oximetry 06/16/22 06/16/22 06/16/22 02:30 02:37 02:40 Temperature Pulse Rate 103 H 100 101 H Respiratory 30 H 20 24 Rate Blood Pressure 96/58 96/58 97/57 O2 Sat by Pulse 95 95 96 Oximetry 06/16/22 06/16/22 06/16/22 03:00 03:30 04:00 Temperature Pulse Rate 102 H 102 H 104 H Respiratory 20 20 14 Rate Blood Pressure 102/55 88/50 101/59 O2 Sat by Pulse 95 96 96 Oximetry 06/16/22 06/16/22 06/16/22 04:30 05:00 05:30 Temperature Pulse Rate 104 H 101 H 91 Respiratory 16 19 20 Rate Blood Pressure 96/57 100/59 98/61 O2 Sat by Pulse 94 L 96 96 Oximetry 06/16/22 06/16/22 06/16/22 06:00 06:30 07:00 Temperature Pulse Rate 90 89 91 Respiratory 16 19 20 Rate Blood Pressure 101/56 99/59 102/60 O2 Sat by Pulse 96 96 95 Oximetry 06/16/22 06/16/22 06/16/22 07:40 07:49 08:00 Temperature Pulse Rate 101 H 103 H 104 H Respiratory 26 H Rate Blood Pressure 110/65 O2 Sat by Pulse 95 94 L Oximetry 06/16/22 06/16/22 06/16/22 09:00 11:36 11:45 Temperature Pulse Rate 105 H 104 H 104 H Respiratory 36 H Rate Blood Pressure 106/63 O2 Sat by Pulse 93 L Oximetry 06/16/22 06/16/22 06/16/22 16:35 16:47 17:03 Temperature Pulse Rate 92 96 78 Respiratory 24 Rate Blood Pressure O2 Sat by Pulse 99 Oximetry - Reevaluation(s) Reevaluation #1: 06/15/22 Medical record is reviewed Patient symptoms improved here in the ER Patient informed of results and questions answered Medical Decision Making - Medical Decision Making 87 male to the emergency department for evaluation of chest pain. Patient is found to have pneumonia with pulmonary edema and low oxygen. - Lab Data Result diagrams: 06/19/22 03:43 06/20/22 05:53 Lab Results 06/16/22 06/16/22 06/16/22 Range/Units 02:09 02:09 02:09 WBC 24.2 H (3.8-10.6) k/uL RBC 5.33 (4.30-5.90) m/uL Hgb 14.9 (13.0-17.5) gm/dL Hct 47.5 (39.0-53.0) % MCV 89.1 (80.0-100.0) fL MCH 27.9 (25.0-35.0) pg MCHC 31.3 (31.0-37.0) g/dL RDW 14.4 (11.5-15.5) % Plt Count 327 (150-450) k/uL MPV 8.1 Neutrophils % 89 % Lymphocytes % 6 % Monocytes % 4 % Eosinophils % 1 % Basophils % 1 % Neutrophils # 21.5 H (1.3-7.7) k/uL Lymphocytes # 1.4 (1.0-4.8) k/uL Monocytes # 0.9 (0-1.0) k/uL Eosinophils # 0.2 (0-0.7) k/uL Basophils # 0.1 (0-0.2) k/uL Hypochromasia Marked PT 15.2 H (9.0-12.0) sec INR 1.5 H (<1.2) APTT 25.2 (22.0-30.0) sec Sodium (137-145) mmol/L Potassium (3.5-5.1) mmol/L Chloride (98-107) mmol/L Carbon Dioxide (22-30) mmol/L Anion Gap mmol/L BUN (9-20) mg/dL Creatinine (0.66-1.25) mg/dL Est GFR (CKD-EPI)AfAm (>60 ml/min/1.73 sqM) Est GFR (CKD-EPI)NonAf (>60 ml/min/1.73 sqM) Glucose (74-99) mg/dL Calcium (8.4-10.2) mg/dL Phosphorus (2.5-4.5) mg/dL Magnesium (1.6-2.3) mg/dL Total Bilirubin (0.2-1.3) mg/dL AST (17-59) U/L ALT (4-49) U/L Alkaline Phosphatase (38-126) U/L Troponin I <0.012 (0.000-0.034) ng/mL NT-Pro-B Natriuret Pep pg/mL Total Protein (6.3-8.2) g/dL Albumin (3.5-5.0) g/dL 06/16/22 06/16/22 Range/Units 02:09 02:40 WBC (3.8-10.6) k/uL RBC (4.30-5.90) m/uL Hgb (13.0-17.5) gm/dL Hct (39.0-53.0) % MCV (80.0-100.0) fL MCH (25.0-35.0) pg MCHC (31.0-37.0) g/dL RDW (11.5-15.5) % Plt Count (150-450) k/uL MPV Neutrophils % % Lymphocytes % % Monocytes % % Eosinophils % % Basophils % % Neutrophils # (1.3-7.7) k/uL Lymphocytes # (1.0-4.8) k/uL Monocytes # (0-1.0) k/uL Eosinophils # (0-0.7) k/uL Basophils # (0-0.2) k/uL Hypochromasia PT (9.0-12.0) sec INR (<1.2) APTT (22.0-30.0) sec Sodium 146 H (137-145) mmol/L Potassium 4.6 (3.5-5.1) mmol/L Chloride 111 H (98-107) mmol/L Carbon Dioxide 18 L (22-30) mmol/L Anion Gap 17 mmol/L BUN 35 H (9-20) mg/dL Creatinine 0.72 (0.66-1.25) mg/dL Est GFR (CKD-EPI)AfAm >90 (>60 ml/min/1.73 sqM) Est GFR (CKD-EPI)NonAf 83 (>60 ml/min/1.73 sqM) Glucose 123 H (74-99) mg/dL Calcium 9.6 (8.4-10.2) mg/dL Phosphorus 4.7 H (2.5-4.5) mg/dL Magnesium 2.1 (1.6-2.3) mg/dL Total Bilirubin 1.6 H (0.2-1.3) mg/dL AST 34 (17-59) U/L ALT 12 (4-49) U/L Alkaline Phosphatase 95 (38-126) U/L Troponin I (0.000-0.034) ng/mL NT-Pro-B Natriuret Pep 439 pg/mL Total Protein 6.2 L (6.3-8.2) g/dL Albumin 3.2 L (3.5-5.0) g/dL - Radiology Data Radiology results: report reviewed (Chest x-rays positive for pulmonary edema and pneumonia), image reviewed Critical Care Time Critical Care Time: Yes Total Critical Care Time: 31 Disposition Clinical Impression: Acute pulmonary edema, Community acquired pneumonia, Hypoxia, Pneumonia, NSTEMI (non-ST elevated myocardial infarction) Disposition: HOME SELF-CARE Condition: Fair Is patient prescribed a controlled substance at d/c from ED?: No Time of Disposition: 04:10
[2022-06-16 02:23] LABS: Basophils # (A) 0.1 k/uL (0-0.2); Basophils % (A) 1 %; Eosinophils # (A) 0.2 k/uL (0-0.7); Eosinophils % (A) 1 %; HCT 47.5 % (39.0-53.0); HGB 14.9 gm/dL (13.0-17.5); Hypochromasia Marked; Lymphocytes # (A) 1.4 k/uL (1.0-4.8); Lymphocytes % (A) 6 %; MCH 27.9 pg (25.0-35.0); MCHC 31.3 g/dL (31.0-37.0); MCV 89.1 fL (80.0-100.0); Mean Platelet Volume 8.1; Monocytes # (A) 0.9 k/uL (0-1.0); Monocytes % (A) 4 %; Neutrophils # (A) 21.5 k/uL (1.3-7.7); Neutrophils % (A) 89 %; Platelet Count 327 k/uL (150-450); RBC 5.33 m/uL (4.30-5.90); RDW 14.4 % (11.5-15.5); WBC 24.2 k/uL (3.8-10.6)
[2022-06-16 02:44] LABS: INR 1.5 (<1.2); Partial Thromboplastin Time 25.2 sec (22.0-30.0); Prothrombin Time 15.2 sec (9.0-12.0)
[2022-06-16 03:11] LABS: ALT 12 U/L (4-49); African American GFR (CKD) >90 (>60 ml/min/1.73 sqM); Albumin 3.2 g/dL (3.5-5.0); Anion Gap 17 mmol/L; Blood Urea Nitrogen 35 mg/dL (9-20); Calcium 9.6 mg/dL (8.4-10.2); Carbon Dioxide 18 mmol/L (22-30); Chloride 111 mmol/L (98-107); Glucose 123 mg/dL (74-99); Non-African American GFR(CKD) 83 (>60 ml/min/1.73 sqM); Sodium 146 mmol/L (137-145); Total Bilirubin 1.6 mg/dL (0.2-1.3); Total Protein 6.2 g/dL (6.3-8.2)
[2022-06-16 03:13] LABS: AST 34 U/L (17-59); Alkaline Phosphatase 95 U/L (38-126); Magnesium 2.1 mg/dL (1.6-2.3); Phosphorus 4.7 mg/dL (2.5-4.5); Potassium 4.6 mmol/L (3.5-5.1)
--- NOTE | 2022-06-16 03:21 | XR ---
EXAMINATION TYPE: XR chest 1V portable DATE OF EXAM: 06/16/2022 COMPARISON: 11/16/2021 HISTORY: Chest pain TECHNIQUE: Single view FINDINGS: Heart is enlarged. There is some pulmonary interstitial and airspace edema. There are chest leads. There is left-sided central venous catheter with tip in the superior vena cava. No definite p leural effusion. IMPRESSION: There is some patchy pulmonary edema which is increased compared to the old exam and coul d be congestive heart failure or RDS.
[2022-06-16] MEDS ORDERED: PNEUMONIA PROTOCOL UTILIZED 1 EACH MISC PO PRN (04:03)
[2022-06-16] MEDS ORDERED: AZITHROMYCIN 500 MG in SODIUM CHLORIDE 0.9% 250 ML IVPB STA (04:03)
[2022-06-16] MEDS: IPRATROPIUM-ALBUTEROL 3 ML NEB INHALATION SCH ×4 (07:37→20:06)
--- NOTE | 2022-06-16 10:22 | P.CRDCN ---
History of Present Illness Consult date: 06/16/22 Consult reason: congestive heart failure History of present illness: HISTORY OF PRESENTING ILLNESS This is an 87-year-old male with past medical history significant for DVT and pulmonary embolism, liver cancer, COPD, BPH, former tobacco use. 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 We have been asked to see in consultation for heart failure. Patient is a poor historian and unable to obtain any information from the patient. Chart is reviewed patient assessed. DIAGNOSTICS EKG reveals sinus tachycardia, HR 103, right bundle branch block, first degree AV block, no acute ST-T wave abnormalities Chest xray -patchy pulmonary edema which is increased compared to old exam and could be congestive heart failure or RDS Laboratory reviewed: WBC 24.2, hemoglobin 14.9. INR 1.5. Sodium 146, potassium 4.6, chloride 111, CO2 18, BUN 35 and creatinine 0.72. Magnesium 2.1. Phosphorus 4.7. Troponin negative 1. ProBNP 439. Echocardiogram 09/16/2021 revealed EF of 50-55%, mild concentric left ventricular hypertrophy, mild aortic valve sclerosis, mild mitral calcification, mild tricuspid regurgitation. Current home medications include Eliquis 5 mg twice a day REVIEW OF SYSTEMS Unable to obtain due to patient's mental status PHYSICAL EXAMINATION Blood pressure 106/63, heart rate 105, respiratory rate 36, pulse ox 93% on 2 L nasal cannula CONSTITUTIONAL: No apparent distress. HEENT: Head is normocephalic. Pupils are equal, round. Sclerae anicteric. Mucous membranes of the mouth are dry. No JVD. No carotid bruit. CHEST EXAMINATION: Lungs are mild crackles bilaterally to auscultation. No chest wall tenderness is noted on palpation or with deep breathing. HEART EXAMINATION: Regular rate and rhythm. S1, S2 heard. No murmurs, gallops or rub. ABDOMEN: Soft, nontender. Positive bowel sounds. EXTREMITIES: 2+ peripheral pulses, no lower extremity edema and no calf tenderness. NEUROLOGIC EXAMINATION: Patient is awake. ASSESSMENT Possible pneumonia with elevated white count and septic picture No evidence of heart failure with no edema, no crackles in his lungs, normal BNP History of DVT and pulmonary embolism History of COPD History of liver cancer PLAN Obtain 2-D echocardiogram Further recommendations based on clinical course Nurse practitioner note has been reviewed by physician. Signing provider agrees with the documented findings, assessment, and plan of care. Past Medical History Past Medical History: Pneumonia Additional Past Medical History / Comment(s): liver cancer, lung cancer History of Any Multi-Drug Resistant Organisms: None Reported Past Surgical History: Tonsillectomy Additional Past Surgical History / Comment(s): liver surgery Past Anesthesia/Blood Transfusion Reactions: No Reported Reaction Past Psychological History: No Psychological Hx Reported Smoking Status: Former smoker Past Alcohol Use History: None Reported Past Drug Use History: None Reported - Past Family History Father Family Medical History: Cancer Additional Family Medical History / Comment(s): Throat cancer Mother History Unknown: Yes Medications and Allergies Home Medications Medication Instructions Recorded Confirmed Type Albuterol Sulfate [Albuterol 1 - 2 puff INHALATION RT-Q4H PRN 09/15/21 11/14/21 History Sulfate Hfa] Apixaban [Eliquis] 5 mg PO BID 09/15/21 11/14/21 History Cholecalciferol [Vitamin D3 (25 100 mcg PO DAILY 09/15/21 11/14/21 History Mcg = 1000 Iu)] Ferrous Sulfate [Iron (65 MG 650 mg PO DAILY 09/15/21 11/14/21 History Elemental)] Fluticasone Propion/Salmeterol 1 - 2 puff INHALATION RT-BID 09/15/21 11/14/21 History [Fluticasone-Salmeterol 250-50] Folic Acid 0.8 mg PO DAILY 09/15/21 11/14/21 History Nystatin 100,000 Unit/ml Susp 5 ml PO QID PRN 09/15/21 11/14/21 History [Mycostatin Oral Susp] Richards-3 Fatty Acids/Fish Oil [Fish 1 cap PO W/LUNCH 09/15/21 11/14/21 History Oil 1,000 mg Softgel] Tamsulosin HCl [Flomax] 0.4 mg PO HS 09/15/21 11/14/21 History Vitamin A Acetate [Vitamin A] 10,000 unit PO W/LUNCH 09/15/21 11/14/21 History Ipratropium Nebulized [Atrovent 0.5 mg INHALATION RT-QID 11/14/21 11/14/21 History Nebulized 0.2 MG/ML] Amoxicillin/Potassium Clav 1 tab PO Q12HR 5 Days #10 tab 11/17/21 Rx [Augmentin 875-125 Tablet] Allergies Allergy/AdvReac Type Severity Reaction Status Date / Time Sulfa (Sulfonamide Allergy Unknown Verified 06/16/22 02:09 Antibiotics) Physical Exam Vitals: Vital Signs Temp Pulse Resp BP Pulse Ox 06/16/22 07:49 103 H 06/16/22 07:40 101 H 95 06/16/22 07:00 91 20 102/60 95 06/16/22 06:30 89 19 99/59 96 06/16/22 06:00 90 16 101/56 96 06/16/22 05:30 91 20 98/61 96 06/16/22 05:00 101 H 19 100/59 96 06/16/22 04:30 104 H 16 96/57 94 L 06/16/22 04:00 104 H 14 101/59 96 06/16/22 03:30 102 H 20 88/50 96 06/16/22 03:00 102 H 20 102/55 95 06/16/22 02:40 101 H 24 97/57 96 06/16/22 02:37 100 20 96/58 95 06/16/22 02:30 103 H 30 H 96/58 95 06/16/22 02:20 113 H 38 H 103/57 95 06/16/22 02:09 30 H 06/16/22 02:05 98.2 F 135 H 19 109/61 96 Intake and Output 06/15/22 06/16/22 06/16/22 22:59 06:59 14:59 Other: Weight 68.039 kg Results 06/16/22 02:09 06/16/22 02:40 Cardiac Enzymes 06/16/22 06/16/22 Range/Units 02:09 02:40 AST 34 (17-59) U/L Troponin I <0.012 (0.000-0.034) ng/mL Coagulation 06/16/22 Range/Units 02:09 PT 15.2 H (9.0-12.0) sec APTT 25.2 (22.0-30.0) sec CBC 06/16/22 Range/Units 02:09 WBC 24.2 H (3.8-10.6) k/uL RBC 5.33 (4.30-5.90) m/uL Hgb 14.9 (13.0-17.5) gm/dL Hct 47.5 (39.0-53.0) % Plt Count 327 (150-450) k/uL Comprehensive Metabolic Panel 06/16/22 Range/Units 02:40 Sodium 146 H (137-145) mmol/L Potassium 4.6 (3.5-5.1) mmol/L Chloride 111 H (98-107) mmol/L Carbon Dioxide 18 L (22-30) mmol/L BUN 35 H (9-20) mg/dL Creatinine 0.72 (0.66-1.25) mg/dL Glucose 123 H (74-99) mg/dL Calcium 9.6 (8.4-10.2) mg/dL AST 34 (17-59) U/L ALT 12 (4-49) U/L Alkaline Phosphatase 95 (38-126) U/L Total Protein 6.2 L (6.3-8.2) g/dL Albumin 3.2 L (3.5-5.0) g/dL Current Medications Generic Name Dose Route Start Last Admin Trade Name Freq PRN Reason Stop Dose Admin Albuterol/Ipratropium 3 ml 06/16/22 08:00 06/16/22 07:37 Ipratropium-Albuterol 3 Ml Neb INHALATION 3 ml RT-QID HERIBERTO Administration Azithromycin 500 mg 06/17/22 09:00 Azithromycin 500 Mg Tab PO 06/18/22 09:01 DAILY [facility] Protocol Sodium Chloride 1,000 mls @ 75 mls/hr 06/16/22 02:06 06/16/22 02:12 Saline 0.9% IV 06/16/22 15:25 75 mls/hr .[id number] STA Administration Ceftriaxone Sodium 2 gm/ 50 mls @ 100 mls/hr 06/17/22 05:00 Sodium Chloride IVPB 06/20/22 05:29 Q24H HERIBERTO Protocol Miscellaneous Information 1 each 06/16/22 04:03 Pneumonia Protocol Utilized 1 Each Misc PO ONCE PRN Per Protocol Intake and Output 06/15/22 06/16/22 06/16/22 22:59 06:59 14:59 Other: Weight 68.039 kg 06/16/22 02:09 06/16/22 02:40
--- NOTE | 2022-06-16 13:13 | P.HPIM ---
History of Present Illness Patient is a pleasant 87-year-old male with his known history of COPD was brought in because of shortness of breath. Patient does use oxygen at home. Unable to get much of the history is not confused because of his weakness he is unable to provide much of the history from the patient. Patient has diffuse infiltrate bilaterally which can be secondary to either pneumonia or CHF but patient BNP is only around 400 patient is coughing patient does have leukocytosis with highly elevated white blood cell count of 4 24,000 patient doesn't have any JVD doesn't have any history of congestive heart failure. Patient was started on Rocephin and azithromycin, inhalational treatments. Does have history of pulmonary embolism for which patient is on eliquis. REVIEW OF SYSTEMS: CONSTITUTIONAL: No fever, no malaise, no fatigue. HEENT: No recent visual problems or hearing problems. Denied any sore throat. CARDIOVASCULAR: No chest pain, orthopnea, PND, no palpitations, no syncope. PULMONARY: no hemoptysis. GASTROINTESTINAL: No diarrhea, no nausea, no vomiting, no abdominal pain. NEUROLOGICAL: No headaches, no weakness, no numbness. HEMATOLOGICAL: Denies any bleeding or petechiae. GENITOURINARY: Denies any burning micturition, frequency, or urgency. MUSCULOSKELETAL/RHEUMATOLOGICAL: Denies any joint pain, swelling, or any muscle pain. ENDOCRINE: Denies any polyuria or polydipsia. The rest of the 14-point review of systems is negative. PHYSICAL EXAMINATION: GENERAL: The patient is alert and oriented x3, not in any acute distress. Well developed, well nourished. HEENT: Pupils are round and equally reacting to light. EOMI. No scleral icterus. No conjunctival pallor. Normocephalic, atraumatic. No pharyngeal erythema. No thyromegaly. CARDIOVASCULAR: S1 and S2 present. No murmurs, rubs, or gallops. PULMONARY: Chest is clear to auscultation, no wheezing or crackles. ABDOMEN: Diminished with some mild rhonchi bilaterally MUSCULOSKELETAL: No joint swelling or deformity. EXTREMITIES: No cyanosis, clubbing, or pedal edema. NEUROLOGICAL: Gross neurological examination did not reveal any focal deficits. SKIN: No rashes. Assessment and plan -Acute hypoxic respiratory failure: Secondary to COPD exacerbation and pneumonia. Patient can you done Rocephin and azithromycin sputum cultures and blood cultures were obtained pulmonary will be canceled. Patient will be continued on inhalational treatments -History of pulmonary embolism for which patient is an above-mentioned anti- correlation which will be continued -leukocytosis secondary to pneumonia as mentioned above -COPD with mild acute exacerbation -History of lung and liver cancer which is in remission DVT prophylaxis: On anti-correlation as mentioned above Past Medical History Past Medical History: Pneumonia Additional Past Medical History / Comment(s): liver cancer, lung cancer History of Any Multi-Drug Resistant Organisms: None Reported Past Surgical History: Tonsillectomy Additional Past Surgical History / Comment(s): liver surgery Past Anesthesia/Blood Transfusion Reactions: No Reported Reaction Past Psychological History: No Psychological Hx Reported Smoking Status: Former smoker Past Alcohol Use History: None Reported Past Drug Use History: None Reported - Past Family History Father Family Medical History: Cancer Additional Family Medical History / Comment(s): Throat cancer Mother History Unknown: Yes Medications and Allergies Home Medications Medication Instructions Recorded Confirmed Type Albuterol Sulfate [Albuterol 2 puff INHALATION RT-Q6H PRN 09/15/21 06/16/22 History Sulfate Hfa] Apixaban [Eliquis] 5 mg PO BID 09/15/21 06/16/22 History Cholecalciferol [Vitamin D3 (25 100 mcg PO DAILY 09/15/21 06/16/22 History Mcg = 1000 Iu)] Ferrous Sulfate [Iron (65 MG 650 mg PO DAILY 09/15/21 06/16/22 History Elemental)] Wiley-3 Fatty Acids/Fish Oil [Fish 1 cap PO W/LUNCH 09/15/21 06/16/22 History Oil 1,000 mg Softgel] Tamsulosin HCl [Flomax] 0.4 mg PO HS 09/15/21 06/16/22 History Vitamin A Acetate [Vitamin A] 10,000 unit PO W/LUNCH 09/15/21 06/16/22 History Carbidopa/Levodopa [Sinemet 25-100 2 tab PO QID 06/16/22 06/16/22 History mg Tablet] Ipratropium-Albuterol Nebulize 3 ml INHALATION RT-QID PRN 06/16/22 06/16/22 History [Duoneb 0.5 mg-3 mg/3 ml Soln] Allergies Allergy/AdvReac Type Severity Reaction Status Date / Time Sulfa (Sulfonamide Allergy Unknown Verified 06/16/22 12:38 Antibiotics) Physical Exam Vitals: Vital Signs Temp Pulse Resp BP Pulse Ox 06/16/22 11:45 104 H 06/16/22 11:36 104 H 06/16/22 09:00 105 H 36 H 106/63 93 L 06/16/22 08:00 104 H 26 H 110/65 94 L 06/16/22 07:49 103 H 06/16/22 07:40 101 H 95 06/16/22 07:00 91 20 102/60 95 06/16/22 06:30 89 19 99/59 96 06/16/22 06:00 90 16 101/56 96 06/16/22 05:30 91 20 98/61 96 06/16/22 05:00 101 H 19 100/59 96 06/16/22 04:30 104 H 16 96/57 94 L 06/16/22 04:00 104 H 14 101/59 96 06/16/22 03:30 102 H 20 88/50 96 06/16/22 03:00 102 H 20 102/55 95 06/16/22 02:40 101 H 24 97/57 96 06/16/22 02:37 100 20 96/58 95 06/16/22 02:30 103 H 30 H 96/58 95 06/16/22 02:20 113 H 38 H 103/57 95 06/16/22 02:09 30 H 06/16/22 02:05 98.2 F 135 H 19 109/61 96 Intake and Output 06/15/22 06/16/22 06/16/22 22:59 06:59 14:59 Other: Weight 68.039 kg Results CBC & Chem 7: 06/16/22 02:09 06/16/22 02:40 Labs: Abnormal Lab Results - Last 24 Hours (Table) 06/16/22 06/16/22 06/16/22 Range/Units 02:09 02:09 02:40 WBC 24.2 H (3.8-10.6) k/uL Neutrophils # 21.5 H (1.3-7.7) k/uL PT 15.2 H (9.0-12.0) sec INR 1.5 H (<1.2) Sodium 146 H (137-145) mmol/L Chloride 111 H (98-107) mmol/L Carbon Dioxide 18 L (22-30) mmol/L BUN 35 H (9-20) mg/dL Glucose 123 H (74-99) mg/dL Phosphorus 4.7 H (2.5-4.5) mg/dL Total Bilirubin 1.6 H (0.2-1.3) mg/dL Total Protein 6.2 L (6.3-8.2) g/dL Albumin 3.2 L (3.5-5.0) g/dL
[2022-06-16] MEDS: CARBIDOPA-LEVODOPA 25-100 MG 1 EACH TAB PO SCH ×3 (14:11→19:40)
--- NOTE | 2022-06-16 15:57 | P.CNPUL ---
History of Present Illness Consult date: 06/16/22 Reason for consult: dyspnea History of present illness: 87-year-old male patient, presented to the also because of generalized weakness, generalized lethargy, debility, dementia intake, as the patient has not been able to eat for the past 5-6 days, extensive oral dryness and worsening shortness of breath. He is known to have COPD. He was diagnosed having a hepatic cancer back in [place] several years ago and the patient has been treated with immunotherapy utilizing Keytruda and subsequently the patient was found to have a nodule in the lung treated by SBRT. The patient's treatment has been through [facility] where the patient has been receiving infusions every 3 weeks. He is presenting with difficulty in swallowing and worsening shortness of breath. The [place] was at 24 with a hemoglobin of 14.9 and a sodium level is at 146 with a chloride of 111 and a bicarb of 18 with a BUN of 34 with a creatinine of 0.7. Troponins are negative. ProBNP level is 439. Chest x-ray showing patchy pulmonary infiltrates bilaterally, loss in the right, and there is extensive patchy airspace disease and atelectatic changes in the mid and lower lung andujar bilaterally along with various areas of groundglass pulmonary infiltrates. He seems to be quite debilitated. He has a stage II sacral decubitus ulceration. Review of Systems Constitutional: Reports fatigue, Reports poor appetite, Reports weakness, Reports weight loss Eyes: denies as per HPI, denies blurred vision, denies bulging eye, denies decreased vision, denies diplopia, denies discharge, denies dry eye, denies irritation, denies itching, denies pain, denies photophobia, denies loss of peripheral vision, denies loss of vision, denies tunnel vision/blind spots Ears: deny: decreased hearing, ear discharge, earache, tinnitus Ears, nose, mouth and throat: Reports as per HPI Breasts: absent: as per HPI, gynecomastia Cardiovascular: Reports decreased exercise tolerance, Reports dyspnea on exertion Respiratory: Reports cough, Reports dyspnea Gastrointestinal: Reports loss of appetite Genitourinary: Reports as per HPI Musculoskeletal: Reports as per HPI, Reports gait dysfunction, Reports limitation of motion, Reports muscle weakness Musculoskeletal: absent: ankle pain, ankle stiffness, ankle swelling Integumentary: Reports as per HPI, Reports wounds Neurological: Reports gait dysfunction, Reports weakness Psychiatric: Reports as per HPI Endocrine: Reports as per HPI, Reports fatigue Hematologic/Lymphatic: Reports as per HPI Allergic/Immunologic: Reports as per HPI Past Medical History Past Medical History: COPD, Deep Vein Thrombosis (DVT), Pulmonary Embolus (PE) Additional Past Medical History / Comment(s): liver cancer ,, possibly metastatic and the patient has been receiving immunotherapy and the patient has a Mediport. The patient also has a pulmonary lesion treated by SBRT History of Any Multi-Drug Resistant Organisms: None Reported Past Surgical History: Tonsillectomy Additional Past Surgical History / Comment(s): liver surgery Past Anesthesia/Blood Transfusion Reactions: No Reported Reaction Past Psychological History: No Psychological Hx Reported Smoking Status: Former smoker Past Alcohol Use History: None Reported Past Drug Use History: None Reported - Past Family History Father Family Medical History: Cancer Additional Family Medical History / Comment(s): Throat cancer Mother History Unknown: Yes Medications and Allergies Home Medications Medication Instructions Recorded Confirmed Type Albuterol Sulfate [Albuterol 2 puff INHALATION RT-Q6H PRN 09/15/21 06/16/22 History Sulfate Hfa] Apixaban [Eliquis] 5 mg PO BID 09/15/21 06/16/22 History Cholecalciferol [Vitamin D3 (25 100 mcg PO DAILY 09/15/21 06/16/22 History Mcg = 1000 Iu)] Ferrous Sulfate [Iron (65 MG 650 mg PO DAILY 09/15/21 06/16/22 History Elemental)] [place]-3 Fatty Acids/Fish Oil [Fish 1 cap PO W/LUNCH 09/15/21 06/16/22 History Oil 1,000 mg Softgel] Tamsulosin HCl [Flomax] 0.4 mg PO HS 09/15/21 06/16/22 History Vitamin A Acetate [Vitamin A] 10,000 unit PO W/LUNCH 09/15/21 06/16/22 History Carbidopa/Levodopa [Sinemet 25-100 2 tab PO QID 06/16/22 06/16/22 History mg Tablet] Ipratropium-Albuterol Nebulize 3 ml INHALATION RT-QID PRN 06/16/22 06/16/22 His tory [Duoneb 0.5 mg-3 mg/3 ml Soln] Allergies Allergy/AdvReac Type Severity Reaction Status Date / Time Sulfa (Sulfonamide Allergy Unknown Verified 06/16/22 12:38 Antibiotics) Physical Exam Vitals: Vital Signs Temp Pulse Resp BP Pulse Ox 06/16/22 11:45 104 H 06/16/22 11:36 104 H 06/16/22 09:00 105 H 36 H 106/63 93 L 06/16/22 08:00 104 H 26 H 110/65 94 L 06/16/22 07:49 103 H 06/16/22 07:40 101 H 95 06/16/22 07:00 91 20 102/60 95 06/16/22 06:30 89 19 99/59 96 06/16/22 06:00 90 16 101/56 96 06/16/22 05:30 91 20 98/61 96 06/16/22 05:00 101 H 19 100/59 96 06/16/22 04:30 104 H 16 96/57 94 L 06/16/22 04:00 104 H 14 101/59 96 06/16/22 03:30 102 H 20 88/50 96 06/16/22 03:00 102 H 20 102/55 95 06/16/22 02:40 101 H 24 97/57 96 06/16/22 02:37 100 20 96/58 95 06/16/22 02:30 103 H 30 H 96/58 95 06/16/22 02:20 113 H 38 H 103/57 95 06/16/22 02:09 30 H 06/16/22 02:05 98.2 F 135 H 19 109/61 96 Intake and Output 06/16/22 06/16/22 06/16/22 06:59 14:59 22:59 Other: Weight 68.039 kg GENERAL: The patient is alert and oriented x3, not in any acute distress. the patient is extensively debilitated, malnourished, body mass index of 22.2. He is a poor historian. He is difficult to communicate with. He is also lethargic. Most of the information obtained is from the son at the bedside. Head exam was generally normal. There was no scleral icterus or corneal arcus. Mucous membranes were moist. HEENT: Pupils are round and equally reacting to light. EOMI. No scleral icterus. No conjunctival pallor. Normocephalic, atraumatic. No pharyngeal erythema. No thyromegaly. severe mucositis and severe mucositis dryness involving the buccal mucosa CARDIOVASCULAR: S1 and S2 present. No murmurs, rubs, or gallops. PULMONARY: diminished breath sounds bilaterally especially in the lung bases ABDOMEN: Diminished with some mild rhonchi bilaterally MUSCULOSKELETAL: No joint swelling or deformity. EXTREMITIES: No cyanosis, clubbing, or pedal edema. there is significant muscle atrophy NEUROLOGICAL: Gross neurological examination did not reveal any focal deficits. the patient has reported that he dysfunction by the family. He has generalized motor weakness in all 4 extremities. He also has chronic dysphagia. SKIN: No rashes. small 1 x 1 cm sacral decubitus ulcer, stage II Results - Laboratory Findings CBC and BMP: 06/16/22 02:09 06/16/22 02:40 PT/INR, D-dimer PT 15.2 sec (9.0-12.0) H 06/16/22 02:09 INR 1.5 (<1.2) H 06/16/22 02:09 Abnormal lab findings: Abnormal Labs 06/16/22 06/16/22 06/16/22 02:09 02:09 02:40 WBC 24.2 H Neutrophils # 21.5 H PT 15.2 H INR 1.5 H Sodium 146 H Chloride 111 H Carbon Dioxide 18 L BUN 35 H Glucose 123 H Phosphorus 4.7 H Total Bilirubin 1.6 H Total Protein 6.2 L Albumin 3.2 L - Diagnostic Findings Chest x-ray: image reviewed Assessment and Plan Plan: Acute hypoxic respiratory failure with bilateral airspace disease and interstitial infiltrates and masslike consolidation involving the right lung base. Consider aspiration pneumonia. The patient also has received radiation therapy/SBR T the pulmonary nodule possibly on the right based on my evaluation. Currently, on oxygen by nasal cannula at 2 L/m. Findings is highly suspicious for an underlying aspiration pneumonia. He is known to have chronic dysphagia. He has failed swallow evaluation in the past Acute dehydration Acute hyperchloremic hypernatremia Melena negative metabolic acidosis Leukocytosis Mucositis Chronic dysphagia and aspiration Liver cancer, metastatic and the patient has been treated with Ketruda Metastatic pulmonary lesion, treated with SBRT Chronic debility, weight loss, generalized weakness, malnourishment, body mass index of 22.2 Previous history of DVT and pulmonary embolism maintained on anticoagulation Plan Hydrate this patient with 1/2 NSS at the rate of 100 mL an hour Put the patient on accommodation of Zosyn and Diflucan is also recovering aspi ration pneumonia and Diflucan will be covering his mucositis Swallow evaluation to be repeated Discussed CODE STATUS with the family and the son was at the bedside and the family stated that they don't want any heroic measures and the patient continue updrafts resume all medications and the prognosis is extremely poor.
[2022-06-16] MEDS: PIPERACILLIN-TAZOBACTAM 3.375 GM in SODIUM CHLORIDE 0.9% 100 ML IVPB SCH (18:13)
[2022-06-16] MEDS: SODIUM CHLORIDE 0.45% 1,000 ML IV SCH (18:27)
[2022-06-16] MEDS: TAMSULOSIN 0.4 MG CAP.ER.24H PO SCH (19:40)
[2022-06-16] MEDS: APIXABAN 5 MG TAB PO SCH (19:40)
[2022-06-16] MEDS: FLUCONAZOLE IN NACL,ISO-OSM 100 MG in SALINE 1 50ML.BAG IVPB SCH (21:58)
[2022-06-17] MEDS: PIPERACILLIN-TAZOBACTAM 3.375 GM in SODIUM CHLORIDE 0.9% 100 ML IVPB SCH ×3 (00:47→17:02)
--- NOTE | 2022-06-17 08:01 | XR ---
EXAMINATION TYPE: XR chest 1V portable DATE OF EXAM: 06/17/2022 6:31 AM COMPARISON: Chest radiograph from one day prior. TECHNIQUE: XR chest 1V portable Portable AP radiograph of the chest. CLINICAL INDICATION:Male, 87 years old with history of pneumonia; FINDINGS: Lungs/Pleura: Similar multifocal airspace opacities. No evidence of pneumothorax or pleural effusion. Pulmonary vascularity: Unremarkable. Heart/mediastinum: Cardiomediastinal silhouette is enlarged and stable. Musculoskeletal: Degenerative changes of the shoulder joints. Lines/Tubes: [id number] projecting over the left hemithorax with distal tip at the cavoatrial junction. Other: upper abdominal surgical clips IMPRESSION: Similar multifocal airspace opacities.
[2022-06-17] MEDS: IPRATROPIUM-ALBUTEROL 3 ML NEB INHALATION SCH ×4 (08:20→20:08)
[2022-06-17] MEDS ORDERED: AZITHROMYCIN 500 MG TAB PO SCH (09:00)
[2022-06-17 09:01] VITALS: BMI 22.1
[2022-06-17] MEDS: MAG HYDROX/AL HYDROX/SIMETH 30 ML, diphenhydrAMINE ELIXIR 75 MG, LIDOCAINE VISCOUS 2% 3... PO SCH ×12 (09:15→22:38)
[2022-06-17] MEDS: APIXABAN 5 MG TAB PO SCH (09:15)
[2022-06-17] MEDS: CARBIDOPA-LEVODOPA 25-100 MG 1 EACH TAB PO SCH ×4 (09:15→22:17)
[2022-06-17] MEDS: SODIUM CHLORIDE 0.45% 1,000 ML IV SCH (09:16)
--- NOTE | 2022-06-17 14:24 | P.PN ---
Subjective Progress Note Date: 06/17/22 This is an 87-year-old male with past medical history significant for DVT and pulmonary embolism, liver cancer, COPD, BPH, former tobacco use. 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 We have been asked to see in consultation for heart failure. Patient is a poor historian and unable to obtain any information from the patient. Chart is reviewed patient assessed. 06/17/2022 The patient was seen and examined resting comfortably in bed. He is overall feeling a bit better. He feels his breathing has improved. Continues to be a poor historian and is unclear regarding the events surrounding his admission. He does not appear to be an acute fluid overload. Objective - Vital Signs Vital signs: Vital Signs Temp 98.7 F 06/17/22 08:41 Pulse 96 06/17/22 12:17 Resp 16 06/17/22 08:41 BP 112/69 06/17/22 08:41 Pulse Ox 96 06/17/22 08:41 FiO2 Intake & Output 06/16/22 06/17/22 06/17/22 18:59 06:59 18:59 Output Total 50 Balance -50 Weight 68.039 kg 68.039 kg Output: Urine 50 Other: Voiding Method External Catheter External Catheter External Catheter # Voids 4 - Exam HEENT: Head is normocephalic. Pupils are equal, round. Sclerae anicteric. Mucous membranes of the mouth are dry. No JVD. No carotid bruit. CHEST EXAMINATION: Lungs reveal scattered rhonchi. No chest wall tenderness is noted on palpation or with deep breathing. HEART EXAMINATION: Regular rate and rhythm. S1, S2 heard. No murmurs, gallops or rub. ABDOMEN: Soft, nontender. Positive bowel sounds. EXTREMITIES: 2+ peripheral pulses, no lower extremity edema and no calf tenderness. NEUROLOGIC EXAMINATION: Patient is awake. - Labs CBC & Chem 7: 06/16/22 02:09 06/16/22 02:40 Labs: Microbiology - Last 24 Hours (Table) 06/16/22 04:30 Blood Culture - Preliminary Blood No Growth after 24 hours 06/16/22 04:15 Blood Culture - Preliminary Blood No Growth after 24 hours Assessment and Plan Assessment: Possible pneumonia with elevated white count and septic picture No evidence of heart failure with no edema, no crackles in his lungs, normal BNP History of DVT and pulmonary embolism History of COPD History of liver cancer Plan: From cardiology perspective echocardiogram is pending. At this time we will follow the patient on an as-needed basis. Please do not hesitate to contact us if there are any significant abnormalities noted on the echocardiogram or if you have any questions. SIGN LANGUAGE TEACHER note has been reviewed, I agree with a documented findings and plan of care. Patient was seen and examined.
[2022-06-17] MEDS: ENOXAPARIN 40 MG/0.4 ML SYRINGE SQ SCH (15:17)
[2022-06-17] MEDS: DEXTROSE 5% IN WATER 1,000 ML IV SCH (15:18)
[2022-06-17] MEDS: FLUCONAZOLE IN NACL,ISO-OSM 100 MG in SALINE 1 50ML.BAG IVPB SCH (15:32)
--- NOTE | 2022-06-17 16:00 | P.PN ---
Subjective Patient is a pleasant 87-year-old male with his known history of COPD was brought in because of shortness of breath. Patient does use oxygen at home. Unable to get much of the history is not confused because of his weakness he is unable to provide much of the history from the patient. Patient has diffuse infiltrate bilaterally which can be secondary to either pneumonia or CHF but patient BNP is only around 400 patient is coughing patient does have leukocytosis with highly elevated white blood cell count of 4 24,000 patient doesn't have any JVD doesn't have any history of congestive heart failure. Patient was started on Rocephin and azithromycin, inhalational treatments. Does have history of pulmonary embolism for which patient is on eliquis. 06/17/2022 Patient the is presently nothing by mouth will be evaluated by speech therapy. Patient does have a oral ulcerations once he is able to tolerate oral diet patient will be started on vitamin B supplementation today patient is presently receiving symptomatic treatment for pain from these ulcers. Patient has hypochloremia and hyponatremia because of which IV fluids are being switched to D5 water patient has leukocytosis no labs from today morning. Review of systems: Unable to obtain due to his clinical condition PHYSICAL EXAMINATION: GENERAL: The patient is drowsy sleepy unable to assess his orientation, not in any acute distress. Well developed, well nourished. HEENT: Pupils are round and equally reacting to light. EOMI. No scleral icterus. No conjunctival pallor. Normocephalic, atraumatic. No pharyngeal erythema. No thyromegaly. CARDIOVASCULAR: S1 and S2 present. No murmurs, rubs, or gallops. PULMONARY: Chest is clear to auscultation, no wheezing or crackles. ABDOMEN: Diminished with some mild rhonchi bilaterally MUSCULOSKELETAL: No joint swelling or deformity. EXTREMITIES: No cyanosis, clubbing, or pedal edema. NEUROLOGICAL: Gross neurological examination did not reveal any focal deficits. SKIN: No rashes. Assessment and plan -Acute hypoxic respiratory failure: Secondary to COPD exacerbation and pneumonia. Patient has a right lower lobe infiltrate with concerns of aspiration pneumonia and patient is unable to swallow at this time patient will be started on Zosyn -Dehydration for which patient is on IV fluids -Hypovolemic hypernatremia for which patient will be on D5 water -Non-anion gap metabolic acidosis secondary to hyperchloremia -History of pulmonary embolism for which patient will be continued on anticoagulation -leukocytosis secondary to pneumonia as mentioned above -COPD with mild acute exacerbation -History of lung and liver cancer which is in remission DVT prophylaxis: On anti-correlation as mentioned above Objective - Vital Signs Vital signs: Vital Signs Temp 97.0 F L 06/17/22 15:27 Pulse 107 H 06/17/22 15:27 Resp 16 06/17/22 15:27 BP 108/71 06/17/22 15:27 Pulse Ox 98 06/17/22 15:27 FiO2 Intake & Output 06/16/22 06/17/22 06/17/22 18:59 06:59 18:59 Output Total 50 Balance -50 Weight 68.039 kg 68.039 kg Output: Urine 50 Other: Voiding Method External Catheter External Catheter External Catheter # Voids 4 - Labs CBC & Chem 7: 06/16/22 02:09 06/16/22 02:40 Labs: Microbiology - Last 24 Hours (Table) 06/16/22 04:30 Blood Culture - Preliminary Blood No Growth after 24 hours 06/16/22 04:15 Blood Culture - Preliminary Blood No Growth after 24 hours
--- NOTE | 2022-06-17 18:21 | CA ---
Transthoracic Echo Report Name: Grady Carl Age: 87 Gender: M : 1935 Exam Date: 06/17/2022 08:57 Exam Location: [place] [facility] Ht (in): 69 Wt (lb): 150 Ordering Physician: Annabelle Dueñas Attending/Referring Phys: [id number], Leana Supervisor Calibration Jaqueline Kinney RDCS Procedure CPT: Indications: LVF Cardiac Hx: Technical Quality: Contrast 1: Total Dose (mL): Contrast 2: Total Dose (mL): MEASUREMENTS (Male / Female) Normal Values 2D ECHO LV Diastolic Diameter PLAX 4.8 cm 4.2 - 5.9 / 3.9 - 5.3 cm LV Systolic Diameter PLAX 2.3 cm IVS Diastolic Thickness 1.0 cm 0.6 - 1.0 / 0.6 - 0.9 cm LVPW Diastolic Thickness 1.2 cm 0.6 - 1.0 / 0.6 - 0.9 cm LV Relative Wall Thickness 0.5 RV Internal Dim ED PLAX 4.2 cm M-MODE Aortic Root Diameter MM 3.6 cm LA Systolic Diameter MM 4.0 cm LA Ao Ratio MM 1.1 MV E Point Septal Separation 0.2 cm AV Cusp Separation MM 1.6 cm DOPPLER MV Area PHT 3.5 cm??? Mitral E Point Velocity 64.8 cm/s Mitral A Point Velocity 120.7 cm/s Mitral E to A Ratio 0.5 MV Deceleration Time 216.4 ms TR Peak Velocity 302.8 cm/s TR Peak Gradient 36.7 mmHg Right Ventricular Systolic Press 41.7 mmHg FINDINGS Left Ventricle Left ventricular ejection fraction is estimated at 55 - 60 %. Left ventricular cavity size normal. Mildly increased left ventricular wall thickness. Right Ventricle Normal right ventricular size and function. Mild pulmonary hypertension. Right ventricular systolic pressure estimated at 42 mm hg. Right Atrium Normal right atrial size. Left Atrium Normal left atrial size. Mitral Valve Mild mitral regurgitation. Mitral annulus calcification Aortic Valve Trileaflet aortic valve. Mild to moderate aortic sclerosis Tricuspid Valve Structurally normal tricuspid valve. Mild tricuspid regurgitation. Pulmonic Valve Not well visualized Pericardium Normal pericardium. Aorta Normal size aortic root and proximal ascending aorta. CONCLUSIONS 1. Normal size and systolic function 2. Mild mitral, and tricuspid regurgitation Previewed by: Dr. Dustin Calloway MD (Electronically Signed) Final Date: 17 June 2022 18:19
--- NOTE | 2022-06-17 18:31 | P.PN ---
Subjective Progress Note Date: 06/17/22 87-year-old male patient, presented to the also because of generalized weakness, generalized lethargy, debility, dementia intake, as the patient has not been able to eat for the past 5-6 days, extensive oral dryness and worsening shortness of breath. He is known to have COPD. He was diagnosed having a hepatic cancer back in [place] several years ago and the patient has been treated with immunotherapy utilizing Keytruda and subsequently the patient was found to have a nodule in the lung treated by SBRT. The patient's treatment has been through [facility] where the patient has been receiving infusions every 3 weeks. He is presenting with difficulty in swallowing and worsening shortness of breath. The [place] was at 24 with a hemoglobin of 14.9 and a sodium level is at 146 with a chloride of 111 and a bicarb of 18 with a BUN of 34 with a creatinine of 0.7. Troponins are negative. ProBNP level is 439. Chest x-ray showing patchy pulmonary infiltrates bilaterally, loss in the right, and there is extensive patchy airspace disease and atelectatic changes in the mid and lower lung andujar bilaterally along with various areas of groundglass pulmonary infiltrates. He seems to be quite debilitated. He has a stage II sacral decubitus ulceration. On 06/17/2022, the patient has no specific complaints. The patient is gradually being hydrated. No changes condition in general. 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 He does have some or laceration start the patient on Diflucan. He is also on IV Zosyn. Objective - Vital Signs Vital signs: Vital Signs Temp 97.0 F L 06/17/22 15:27 Pulse 98 06/17/22 17:12 Resp 16 06/17/22 15:27 BP 108/71 06/17/22 15:27 Pulse Ox 98 06/17/22 15:27 FiO2 Intake & Output 06/16/22 06/17/22 06/17/22 18:59 06:59 18:59 Intake Total 1500 Output Total 50 Balance -50 1500 Weight 68.039 kg 68.039 kg Intake: Intake, IV Titration 1500 Amount Dextrose 5% in Water 1, 450 000 ml @ 75 mls/hr IV . [id number] [facility] Rx#:[id number] Fluconazole in NaCl,Iso- 100 Osm 100 mg In Saline 1 50ml.bag @ 50 mls/hr IVPB DAILY@1600 [facility] Rx#: [id number] Piperacillin-Tazobactam 3 200 .375 gm In Sodium Chloride 0.9% 100 ml @ 25 mls/hr IVPB Q8HR [facility] Rx# :[id number] Sodium Chloride 0.45% 1, 750 000 ml @ 75 mls/hr IV . [id number] [facility] Rx#:[id number] Output: Urine 50 Other: Voiding Method External Catheter External Catheter External Catheter # Voids 4 1 - Exam GENERAL: The patient is alert and oriented x3, not in any acute distress. the patient is extensively debilitated, malnourished, body mass index of 22.2. He is a poor historian. He is difficult to communicate with. He is also lethargic. Most of the information obtained is from the son at the bedside. Head exam was generally normal. There was no scleral icterus or corneal arcus. Mucous membranes were moist. HEENT: Pupils are round and equally reacting to light. EOMI. No scleral icterus. No conjunctival pallor. Normocephalic, atraumatic. No pharyngeal erythema. No thyromegaly. severe mucositis and severe mucositis dryness involving the buccal mucosa CARDIOVASCULAR: S1 and S2 present. No murmurs, rubs, or gallops. PULMONARY: diminished breath sounds bilaterally especially in the lung bases ABDOMEN: Diminished with some mild rhonchi bilaterally MUSCULOSKELETAL: No joint swelling or deformity. EXTREMITIES: No cyanosis, clubbing, or pedal edema. there is significant muscle atrophy NEUROLOGICAL: Gross neurological examination did not reveal any focal deficits. the patient has reported that he dysfunction by the family. He has generalized motor weakness in all 4 extremities. He also has chronic dysphagia. SKIN: No rashes. small 1 x 1 cm sacral decubitus ulcer, stage II - Labs CBC & Chem 7: 06/16/22 02:09 06/16/22 02:40 Labs: Microbiology - Last 24 Hours (Table) 06/16/22 04:30 Blood Culture - Preliminary Blood No Growth after 24 hours 06/16/22 04:15 Blood Culture - Preliminary Blood No Growth after 24 hours Assessment and Plan Plan: Acute hypoxic respiratory failure with bilateral airspace disease and interstitial infiltrates and masslike consolidation involving the right lung base. Consider aspiration pneumonia. The patient also has received radiation therapy/SBR T the pulmonary nodule possibly on the right based on my evaluation. Currently, on oxygen by nasal cannula at 2 L/m. Findings is highly suspicious for an underlying aspiration pneumonia. He is known to have chronic dysphagia. He has failed swallow evaluation in the past Acute dehydration Acute hyperchloremic hypernatremia Melena negative metabolic acidosis Leukocytosis Mucositis Chronic dysphagia and aspiration Liver cancer, metastatic and the patient has been treated with Ketruda Metastatic pulmonary lesion, treated with SBRT Chronic debility, weight loss, generalized weakness, malnourishment, body mass index of 22.2 Previous history of DVT and pulmonary embolism maintained on anticoagulation Plan continue same treatment IV fluids Zosyn and Diflucan is also recovering aspiration pneumonia and Diflucan will be covering his mucositis Swallow evaluation to be repeated Discussed CODE STATUS with the family and the son was at the bedside and the family stated that they don't want any heroic measures and the patient continue updrafts resume all medications and the prognosis is extremely poor. repeat labs in a.m.
[2022-06-17 19:01] LABS: Glucose,Whole Blood 127 mg/dL (70-110)
[2022-06-17] MEDS: TAMSULOSIN 0.4 MG CAP.ER.24H PO SCH (22:17)
[2022-06-18 00:20] LABS: Glucose,Whole Blood 140 mg/dL (70-110)
[2022-06-18] MEDS: PIPERACILLIN-TAZOBACTAM 3.375 GM in SODIUM CHLORIDE 0.9% 100 ML IVPB SCH ×3 (00:21→16:10)
[2022-06-18] MEDS: DEXTROSE 5% IN WATER 1,000 ML IV SCH ×2 (03:40→16:24)
[2022-06-18 06:12] LABS: Glucose,Whole Blood 140 mg/dL (70-110)
[2022-06-18] MEDS: IPRATROPIUM-ALBUTEROL 3 ML NEB INHALATION SCH ×4 (07:58→19:30)
[2022-06-18] MEDS: CARBIDOPA-LEVODOPA 25-100 MG 1 EACH TAB PO SCH ×4 (08:25→20:07)
[2022-06-18] MEDS: MAG HYDROX/AL HYDROX/SIMETH 30 ML, diphenhydrAMINE ELIXIR 75 MG, LIDOCAINE VISCOUS 2% 3... PO SCH ×9 (08:28→22:48)
[2022-06-18] MEDS: ENOXAPARIN 40 MG/0.4 ML SYRINGE SQ SCH (08:44)
[2022-06-18] MEDS: DRY MOUTH SPRAY 44.3 SPRAY/44.3 ML SPRAY MUCOUS MEM PRN ×2 (08:47→15:42)
[2022-06-18 13:27] LABS: HCT 38.9 % (39.6-50.0); HGB 12.1 g/dL (13.0-17.0); MCH 26.9 pg (27.0-32.0); MCHC 31.1 g/dL (32.0-37.0); MCV 86.6 fL (80.0-97.0); Mean Platelet Volume 9.7 fL (9.5-12.2); NRBC Per 100 WBC 0 /100 WBCS (0.0-0.0); Platelet Count 240 X 10*3/uL (140-440); RBC 4.49 X 10*6/uL (4.40-5.60); RDW 14.9 % (11.5-14.5); WBC 15.55 X 10*3/uL (4.50-10.00)
[2022-06-18 13:43] LABS: Anion Gap 10.5 mmol/L (10.00-18.00); BUN/Creat Ratio 41.43 Ratio (12.00-20.00); Calcium 9.7 mg/dL (8.7-10.3); Carbon Dioxide 24.5 mmol/L (20.0-27.5); Non-African American GFR(CKD) 83.7 (60.0-200.0); Potassium 3.4 mmol/L (3.5-5.5)
--- NOTE | 2022-06-18 14:43 | P.PN ---
Subjective Patient is a pleasant 87-year-old male with his known history of COPD was brought in because of shortness of breath. Patient does use oxygen at home. Unable to get much of the history is not confused because of his weakness he is unable to provide much of the history from the patient. Patient has diffuse infiltrate bilaterally which can be secondary to either pneumonia or CHF but patient BNP is only around 400 patient is coughing patient does have leukocytosis with highly elevated white blood cell count of 4 24,000 patient doesn't have any JVD doesn't have any history of congestive heart failure. Patient was started on Rocephin and azithromycin, inhalational treatments. Does have history of pulmonary embolism for which patient is on eliquis. 06/17/2022 Patient the is presently nothing by mouth will be evaluated by speech therapy. Patient does have a oral ulcerations once he is able to tolerate oral diet patient will be started on vitamin B supplementation today patient is presently receiving symptomatic treatment for pain from these ulcers. Patient has hypochloremia and hyponatremia because of which IV fluids are being switched to D5 water patient has leukocytosis no labs from today morning. This awaiting 2021 Patient looks bit better today awaiting PEG tube placement and the speech therapy evaluation tomorrow still has some bilateral rhonchi on lung exam. Patient denied any pain potassium will be replaced Review of systems: Unable to obtain due to his clinical condition PHYSICAL EXAMINATION: GENERAL: The patient is drowsy sleepy unable to assess his orientation, not in any acute distress. Well developed, well nourished. HEENT: Pupils are round and equally reacting to light. EOMI. No scleral icterus. No conjunctival pallor. Normocephalic, atraumatic. No pharyngeal erythema. No thyromegaly. CARDIOVASCULAR: S1 and S2 present. No murmurs, rubs, or gallops. PULMONARY: Chest is clear to auscultation, no wheezing or crackles. ABDOMEN: Diminished with some mild rhonchi bilaterally MUSCULOSKELETAL: No joint swelling or deformity. EXTREMITIES: No cyanosis, clubbing, or pedal edema. NEUROLOGICAL: Gross neurological examination did not reveal any focal deficits. SKIN: No rashes. Assessment and plan -Acute hypoxic respiratory failure: Secondary to COPD exacerbation and pneumonia. Patient has a right lower lobe infiltrate with concerns of aspiration pneumonia and patient is unable to swallow at this time patient is on Zosyn -Dehydration for which patient is on IV fluids -Hypovolemic hypernatremia for which patient will be on D5 water -Non-anion gap metabolic acidosis secondary to hyperchloremia -History of pulmonary embolism for which patient will be continued on anticoagulation -leukocytosis secondary to pneumonia as mentioned above -COPD with mild acute exacerbation -History of lung and liver cancer which is in remission DVT prophylaxis: On anti-correlation as mentioned above Objective - Vital Signs Vital signs: Vital Signs Temp 97.9 F 06/18/22 09:03 Pulse 101 H 06/18/22 11:52 Resp 18 06/18/22 11:52 BP 118/77 06/18/22 09:03 Pulse Ox 100 06/18/22 09:03 FiO2 Intake & Output 06/17/22 06/18/22 06/18/22 18:59 06:59 18:59 Intake Total 1500 Balance 1500 Weight 68.039 kg Intake: Intake, IV Titration 1500 Amount Dextrose 5% in Water 1, 450 000 ml @ 75 mls/hr IV . [id number] [facility] Rx#:[id number] Fluconazole in NaCl,Iso- 100 Osm 100 mg In Saline 1 50ml.bag @ 50 mls/hr IVPB DAILY@1600 [facility] Rx#: [id number] Piperacillin-Tazobactam 3 200 .375 gm In Sodium Chloride 0.9% 100 ml @ 25 mls/hr IVPB Q8HR [facility] Rx# :[id number] Sodium Chloride 0.45% 1, 750 000 ml @ 75 mls/hr IV . [id number] [facility] Rx#:[id number] Other: Voiding Method External Catheter Diaper Diaper Incontinent Incontinent # Voids 1 3 # Bowel Movements 1 - Labs CBC & Chem 7: 06/18/22 07:28 06/18/22 07:28 Labs: Abnormal Lab Results - Last 24 Hours (Table) 06/17/22 06/18/22 06/18/22 Range/Units 18:59 00:19 06:10 WBC (4.50-10.00) X 10*3/uL Hgb (13.0-17.0) g/dL Hct (39.6-50.0) % MCH (27.0-32.0) pg MCHC (32.0-37.0) g/dL RDW (11.5-14.5) % Sodium (135-145) mmol/L Potassium (3.5-5.5) mmol/L Chloride (96-109) mmol/L BUN (9.0-27.0) mg/dL BUN/Creatinine Ratio (12.00-20.00) Ratio Glucose (70-110) mg/dL POC Glucose (mg/dL) 127 H 140 H 140 H (70-110) mg/dL 06/18/22 06/18/22 Range/Units 07:28 07:28 WBC 15.55 H (4.50-10.00) X 10*3/uL Hgb 12.1 L (13.0-17.0) g/dL Hct 38.9 L (39.6-50.0) % MCH 26.9 L (27.0-32.0) pg MCHC 31.1 L (32.0-37.0) g/dL RDW 14.9 H (11.5-14.5) % Sodium 147 H (135-145) mmol/L Potassium 3.4 L (3.5-5.5) mmol/L Chloride 112 H (96-109) mmol/L BUN 29.0 H (9.0-27.0) mg/dL BUN/Creatinine Ratio 41.43 H (12.00-20.00) Ratio Glucose 137 H (70-110) mg/dL POC Glucose (mg/dL) (70-110) mg/dL Microbiology - Last 24 Hours (Table) 06/16/22 04:30 Blood Culture - Preliminary Blood No Growth after 48 hours 06/16/22 04:15 Blood Culture - Preliminary Blood No Growth after 48 hours
--- NOTE | 2022-06-18 14:56 | P.PN ---
Subjective Progress Note Date: 06/18/22 87-year-old male patient, presented to the also because of generalized weakness, generalized lethargy, debility, dementia intake, as the patient has not been able to eat for the past 5-6 days, extensive oral dryness and worsening shortness of breath. He is known to have COPD. He was diagnosed having a hepatic cancer back in [place] several years ago and the patient has been treated with immunotherapy utilizing Keytruda and subsequently the patient was found to have a nodule in the lung treated by SBRT. The patient's treatment has been through [facility] where the patient has been receiving infusions every 3 weeks. He is presenting with difficulty in swallowing and worsening shortness of breath. The [place] was at 24 with a hemoglobin of 14.9 and a sodium level is at 146 with a chloride of 111 and a bicarb of 18 with a BUN of 34 with a creatinine of 0.7. Troponins are negative. ProBNP level is 439. Chest x-ray showing patchy pulmonary infiltrates bilaterally, loss in the right, and there is extensive patchy airspace disease and atelectatic changes in the mid and lower lung andujar bilaterally along with various areas of groundglass pulmonary infiltrates. He seems to be quite debilitated. He has a stage II sacral decubitus ulceration. On 06/17/2022, the patient has no specific complaints. The patient is gradually being hydrated. No changes condition in general. 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 He does have some or laceration start the patient on Diflucan. He is also on IV Zosyn. 06/18/2022, no changes in his overall condition. Unable to follow. Unable to take any form of oral intake. Has mucositis. Mucous membranes remain dry. He is lethargic. No signs of any respiratory distress. Remains on accommodation of Diflucan and Zosyn. Very much debilitated with known history of liver cancer as mentioned in my consultation note. Patient remains on IV fluids. Blood work is to be repeated. Objective - Vital Signs Vital signs: Vital Signs Temp 97.9 F 06/18/22 09:03 Pulse 100 06/18/22 14:53 Resp 18 06/18/22 14:53 BP 118/77 06/18/22 09:03 Pulse Ox 100 06/18/22 09:03 FiO2 Intake & Output 06/17/22 06/18/22 06/18/22 18:59 06:59 18:59 Intake Total 1500 Balance 1500 Weight 68.039 kg Intake: Intake, IV Titration 1500 Amount Dextrose 5% in Water 1, 450 000 ml @ 75 mls/hr IV . [id number] [facility] Rx#:[id number] Fluconazole in NaCl,Iso- 100 Osm 100 mg In Saline 1 50ml.bag @ 50 mls/hr IVPB DAILY@1600 [facility] Rx#: [id number] Piperacillin-Tazobactam 3 200 .375 gm In Sodium Chloride 0.9% 100 ml @ 25 mls/hr IVPB Q8HR [facility] Rx# :[id number] Sodium Chloride 0.45% 1, 750 000 ml @ 75 mls/hr IV . [id number] [facility] Rx#:[id number] Other: Voiding Method External Catheter Diaper Diaper Incontinent Incontinent # Voids 1 3 # Bowel Movements 1 - Exam GENERAL: The patient is alert and oriented x3, not in any acute distress. the patient is extensively debilitated, malnourished, body mass index of 22.2. He is a poor historian. He is difficult to communicate with. He is also lethargic. Most of the information obtained is from the son at the bedside. Head exam was generally normal. There was no scleral icterus or corneal arcus. Mucous membranes were moist. HEENT: Pupils are round and equally reacting to light. EOMI. No scleral icterus. No conjunctival pallor. Normocephalic, atraumatic. No pharyngeal erythema. No thyromegaly. severe mucositis and severe mucositis dryness involving the buccal mucosa CARDIOVASCULAR: S1 and S2 present. No murmurs, rubs, or gallops. PULMONARY: diminished breath sounds bilaterally especially in the lung bases ABDOMEN: Diminished with some mild rhonchi bilaterally MUSCULOSKELETAL: No joint swelling or deformity. EXTREMITIES: No cyanosis, clubbing, or pedal edema. there is significant muscle atrophy NEUROLOGICAL: Gross neurological examination did not reveal any focal deficits. the patient has reported that he dysfunction by the family. He has generalized motor weakness in all 4 extremities. He also has chronic dysphagia. SKIN: No rashes. small 1 x 1 cm sacral decubitus ulcer, stage II - Labs CBC & Chem 7: 06/18/22 07:28 06/18/22 07:28 Labs: Abnormal Lab Results - Last 24 Hours (Table) 06/17/22 06/18/22 06/18/22 Range/Units 18:59 00:19 06:10 WBC (4.50-10.00) X 10*3/uL Hgb (13.0-17.0) g/dL Hct (39.6-50.0) % MCH (27.0-32.0) pg MCHC (32.0-37.0) g/dL RDW (11.5-14.5) % Sodium (135-145) mmol/L Potassium (3.5-5.5) mmol/L Chloride (96-109) mmol/L BUN (9.0-27.0) mg/dL BUN/Creatinine Ratio (12.00-20.00) Ratio Glucose (70-110) mg/dL POC Glucose (mg/dL) 127 H 140 H 140 H (70-110) mg/dL 06/18/22 06/18/22 Range/Units 07:28 07:28 WBC 15.55 H (4.50-10.00) X 10*3/uL Hgb 12.1 L (13.0-17.0) g/dL Hct 38.9 L (39.6-50.0) % MCH 26.9 L (27.0-32.0) pg MCHC 31.1 L (32.0-37.0) g/dL RDW 14.9 H (11.5-14.5) % Sodium 147 H (135-145) mmol/L Potassium 3.4 L (3.5-5.5) mmol/L Chloride 112 H (96-109) mmol/L BUN 29.0 H (9.0-27.0) mg/dL BUN/Creatinine Ratio 41.43 H (12.00-20.00) Ratio Glucose 137 H (70-110) mg/dL POC Glucose (mg/dL) (70-110) mg/dL Microbiology - Last 24 Hours (Table) 06/16/22 04:30 Blood Culture - Preliminary Blood No Growth after 48 hours 06/16/22 04:15 Blood Culture - Preliminary Blood No Growth after 48 hours Assessment and Plan Plan: Acute hypoxic respiratory failure with bilateral airspace disease and interstitial infiltrates and masslike consolidation involving the right lung base. Consider aspiration pneumonia. The patient also has received radiation therapy/SBRT the pulmonary nodule possibly on the right based on my evaluation. Currently, on oxygen by nasal cannula at 2 L/m. Findings is highly suspicious for an underlying aspiration pneumonia. He is known to have chronic dysphagia. He has failed swallow evaluation in the past Acute dehydration, improving Acute hyperchloremic hypernatremia, improving the sodium level is at 147 Melena negative metabolic acidosis Leukocytosis, improving Mucositis Chronic dysphagia and aspiration Liver cancer, metastatic and the patient has been treated with Ketruda Metastatic pulmonary lesion, treated with SBRT Chronic debility, weight loss, generalized weakness, malnourishment, body mass index of 22.2 Previous history of DVT and pulmonary embolism maintained on anticoagulation Plan Swallow evaluation Possible PEG tube insertion 4 enteral feeding and nutritional support continue same treatment IV fluids Continue Zosyn and Diflucan is also recovering aspiration pneumonia and Diflucan will be covering his mucositis Discussed CODE STATUS with the family and the son was at the bedside and the family stated that they don't want any heroic measures and the patient continue updrafts resume all medications and the prognosis is extremely poor.
[2022-06-18] MEDS: FLUCONAZOLE IN NACL,ISO-OSM 100 MG in SALINE 1 50ML.BAG IVPB SCH (16:01)
[2022-06-18 16:49] LABS: Glucose,Whole Blood 127 mg/dL (70-110)
[2022-06-18] MEDS: TAMSULOSIN 0.4 MG CAP.ER.24H PO SCH (20:07)
[2022-06-18 20:53] LABS: Glucose,Whole Blood 102 mg/dL (70-110)
[2022-06-18] MEDS ORDERED: POTASSIUM CHLORIDE ER 20 MEQ TAB.ER PO STA ×2 (21:46)
[2022-06-18] MEDS ORDERED: Potassium Replacement Protocol 1 EACH MISC MISCELLANE PRN (22:20)
[2022-06-18] MEDS: POTASSIUM CHLORIDE 10 MEQ in WATER FOR INJECTION 1 100ML.BAG IVPB SCH (22:48)
[2022-06-19 00:08] LABS: Glucose,Whole Blood 133 mg/dL (70-110)
[2022-06-19] MEDS: POTASSIUM CHLORIDE 10 MEQ in WATER FOR INJECTION 1 100ML.BAG IVPB SCH ×3 (01:12→02:23)
[2022-06-19] MEDS: DEXTROSE 5% IN WATER 1,000 ML IV SCH ×2 (05:00→19:38)
[2022-06-19 06:14] LABS: Glucose,Whole Blood 121 mg/dL (70-110)
[2022-06-19] MEDS: IPRATROPIUM-ALBUTEROL 3 ML NEB INHALATION SCH ×4 (08:05→21:24)
[2022-06-19] MEDS: PIPERACILLIN-TAZOBACTAM 3.375 GM in SODIUM CHLORIDE 0.9% 100 ML IVPB SCH ×4 (08:51→17:18)
[2022-06-19] MEDS: ENOXAPARIN 40 MG/0.4 ML SYRINGE SQ SCH (08:51)
[2022-06-19] MEDS: CARBIDOPA-LEVODOPA 25-100 MG 1 EACH TAB PO SCH ×4 (08:54→19:38)
[2022-06-19] MEDS: MAG HYDROX/AL HYDROX/SIMETH 30 ML, diphenhydrAMINE ELIXIR 75 MG, LIDOCAINE VISCOUS 2% 3... PO SCH ×9 (08:54→22:35)
[2022-06-19 09:08] LABS: African American GFR (CKD) 103.3 (60.0-200.0); Anion Gap 10.2 mmol/L (10.00-18.00); BUN/Creat Ratio 45.5 Ratio (12.00-20.00); Blood Urea Nitrogen 27.3 mg/dL (9.0-27.0); Calcium 9.5 mg/dL (8.7-10.3); Carbon Dioxide 23.8 mmol/L (20.0-27.5); Magnesium 2.1 mg/dL (1.5-2.4); Non-African American GFR(CKD) 89.1 (60.0-200.0); Potassium 4.1 mmol/L (3.5-5.5)
[2022-06-19 09:41] LABS: HCT 38.6 % (39.6-50.0); HGB 11.9 g/dL (13.0-17.0); MCH 26.5 pg (27.0-32.0); MCHC 30.8 g/dL (32.0-37.0); Mean Platelet Volume 10.1 fL (9.5-12.2); NRBC Per 100 WBC 0 /100 WBCS (0.0-0.0); Platelet Count 211 X 10*3/uL (140-440); RBC 4.49 X 10*6/uL (4.40-5.60); WBC 13.79 X 10*3/uL (4.50-10.00)
[2022-06-19 09:42] LABS: Basophils # (A) 0.09 X 10*3/uL (0.00-0.10); Basophils % (A) 0.7 %; Eosinophils # (A) 0.24 X 10*3/uL (0.04-0.35); Eosinophils % (A) 1.7 %; Immature Grans, Automated 0.5 %; Lymphocytes # (A) 0.92 X 10*3/uL (0.90-5.00); Lymphocytes % (A) 6.7 %; Monocytes # (A) 1.23 X 10*3/uL (0.20-1.00); Monocytes % (A) 8.9 %; Neutrophils # (A) 11.24 X 10*3/uL (1.80-7.70); Neutrophils % (A) 81.5 %
[2022-06-19 09:43] LABS: Acanthocytes 2+
[2022-06-19 11:41] LABS: Glucose,Whole Blood 127 mg/dL (70-110)
--- NOTE | 2022-06-19 13:10 | P.PN ---
Subjective Progress Note Date: 06/19/22 87-year-old male patient, presented to the also because of generalized weakness, generalized lethargy, debility, dementia intake, as the patient has not been able to eat for the past 5-6 days, extensive oral dryness and worsening shortness of breath. He is known to have COPD. He was diagnosed having a h epatic cancer back in [place] several years ago and the patient has been treated with immunotherapy utilizing Keytruda and subsequently the patient was found to have a nodule in the lung treated by SBRT. The patient's treatment has been through [facility] where the patient has been receiving infusions every 3 weeks. He is presenting with difficulty in swallowing and worsening shortness of breath. The [place] was at 24 with a hemoglobin of 14.9 and a sodium level is at 146 with a chloride of 111 and a bicarb of 18 with a BUN of 34 with a creatinine of 0.7. Troponins are negative. ProBNP level is 439. Chest x-ray showing patchy pulmonary infiltrates bilaterally, loss in the right, and there is extensive patchy airspace disease and atelectatic changes in the mid and lower lung andujar bilaterally along with various areas of groundglass pulmonary infiltrates. He seems to be quite debilitated. He has a stage II sacral decubitus ulceration. On 06/17/2022, the patient has no specific complaints. The patient is gradually being hydrated. No changes condition in general. 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 He does have some or laceration start the patient on Diflucan. He is also on IV Zosyn. 06/18/2022, no changes in his overall condition. Unable to follow. Unable to take any form of oral intake. Has mucositis. Mucous membranes remain dry. He is lethargic. No signs of any respiratory distress. Remains on accommodation of Diflucan and Zosyn. Very much debilitated with known history of liver cancer as mentioned in my consultation note. Patient remains on IV fluids. Blood work is to be repeated. The patient is seen today 06/19/2022 in follow-up on the regular medical floor. He is not communicating verbally. He has issues with chronic dysphagia and difficulty swallowing. He also has multiple oral mucosal ulcers from his Keytruda. Blood cultures reveal no growth. White count 13.7. Hemoglobin 11.9. Platelets 211. Sodium 149. Potassium 4.1. BUN 27. Creatinine 0.6. Glucose 108. He is maintaining O2 saturations in the 90s on 3 L/m per nasal cannula. He is continued on DuoNeb inhalations. Antibiotics in the form of Zosyn. Initiated on fluconazole. Lovenox for anticoagulation. Objective - Vital Signs Vital signs: Vital Signs Temp 98.7 F 06/19/22 08:00 Pulse 100 06/19/22 11:57 Resp 17 06/19/22 01:32 BP 116/76 06/19/22 08:00 Pulse Ox 99 06/19/22 08:00 FiO2 Intake & Output 06/18/22 06/19/22 06/19/22 18:59 06:59 18:59 Output Total 1 Balance -1 Output: Stool 1 Other: Voiding Method Diaper Diaper Incontinent Incontinent # Voids 2 4 2 # Bowel Movements 1 - Exam GENERAL EXAM: Obtunded, frail, cachectic 87-year-old male, on 3 L nasal cannula, fairly comfortable in no apparent distress. HEAD: Normocephalic. EYES: Normal reaction of pupils, equal size. NOSE: Clear with pink turbinates. THROAT: No erythema or exudates. NECK: No masses, no JVD. CHEST: No chest wall deformity. LUNGS: Equal air entry with scattered rhonchi, diminished in the bases. CVS: S1 and S2 normal with no audible murmur, regular rhythm. ABDOMEN: No hepatosplenomegaly, normal bowel sounds, no guarding or rigidity. SPINE: No scoliosis or deformity SKIN: Small 1 x 1 cm sacral decubitus ulcer, stage II CENTRAL NERVOUS SYSTEM: Chronic dysphagia, altered mental status, tone is normal in all 4 extremities. EXTREMITIES: There is no peripheral edema. No clubbing, no cyanosis. Peripheral pulses are intact. - Labs CBC & Chem 7: 06/19/22 03:43 06/19/22 03:43 Labs: Abnormal Lab Results - Last 24 Hours (Table) 06/18/22 06/18/22 06/18/22 Range/Units 07:28 07:28 16:45 WBC 15.55 H (4.50-10.00) X 10*3/uL Hgb 12.1 L (13.0-17.0) g/dL Hct 38.9 L (39.6-50.0) % MCH 26.9 L (27.0-32.0) pg MCHC 31.1 L (32.0-37.0) g/dL RDW 14.9 H (11.5-14.5) % Immature Gran # (0.00-0.04) X 10*3/uL Neutrophils # (1.80-7.70) X 10*3/uL Monocytes # (0.20-1.00) X 10*3/uL Sodium 147 H (135-145) mmol/L Potassium 3.4 L (3.5-5.5) mmol/L Chloride 112 H (96-109) mmol/L BUN 29.0 H (9.0-27.0) mg/dL BUN/Creatinine Ratio 41.43 H (12.00-20.00) Ratio Glucose 137 H (70-110) mg/dL POC Glucose (mg/dL) 127 H (70-110) mg/dL 06/19/22 06/19/22 06/19/22 Range/Units 00:07 03:43 03:43 WBC 13.79 H (4.50-10.00) X 10*3/uL Hgb 11.9 L (13.0-17.0) g/dL Hct 38.6 L (39.6-50.0) % MCH 26.5 L (27.0-32.0) pg MCHC 30.8 L (32.0-37.0) g/dL RDW 15.0 H (11.5-14.5) % Immature Gran # 0.07 H (0.00-0.04) X 10*3/uL Neutrophils # 11.24 H (1.80-7.70) X 10*3/uL Monocytes # 1.23 H (0.20-1.00) X 10*3/uL Sodium 149 H (135-145) mmol/L Potassium (3.5-5.5) mmol/L Chloride 115 H (96-109) mmol/L BUN 27.3 H (9.0-27.0) mg/dL BUN/Creatinine Ratio 45.50 H (12.00-20.00) Ratio Glucose (70-110) mg/dL POC Glucose (mg/dL) 133 H (70-110) mg/dL 06/19/22 06/19/22 Range/Units 06:12 11:40 WBC (4.50-10.00) X 10*3/uL Hgb (13.0-17.0) g/dL Hct (39.6-50.0) % MCH (27.0-32.0) pg MCHC (32.0-37.0) g/dL RDW (11.5-14.5) % Immature Gran # (0.00-0.04) X 10*3/uL Neutrophils # (1.80-7.70) X 10*3/uL Monocytes # (0.20-1.00) X 10*3/uL Sodium (135-145) mmol/L Potassium (3.5-5.5) mmol/L Chloride (96-109) mmol/L BUN (9.0-27.0) mg/dL BUN/Creatinine Ratio (12.00-20.00) Ratio Glucose (70-110) mg/dL POC Glucose (mg/dL) 121 H 127 H (70-110) mg/dL Microbiology - Last 24 Hours (Table) 06/16/22 04:30 Blood Culture - Preliminary Blood No Growth after 72 hours 06/16/22 04:15 Blood Culture - Preliminary Blood No Growth after 72 hours Assessment and Plan Assessment: Acute hypoxic respiratory failure with bilateral airspace disease and interstitial infiltrates and masslike consolidation involving the right lung base. Consider aspiration pneumonia. The patient also has received radiation therapy/SBRT the pulmonary nodule possibly on the right based on my evaluation. Currently, on oxygen by nasal cannula at 3 L/m. Findings is highly suspicious for an underlying aspiration pneumonia. He is known to have chronic dysphagia. He has failed swallow evaluation in the past. Would most likely require a PEG tube insertion Acute dehydration, improving Acute hyperchloremic hypernatremia, the sodium level is at 149 Leukocytosis, improving Mucositis, currently on Diflucan Chronic dysphagia and aspiration Liver cancer, metastatic and the patient has been treated with Ketruda Metastatic pulmonary lesion, treated with SBRT Chronic debility, weight loss, generalized weakness, malnourishment, body mass index of 22.2 Previous history of DVT and pulmonary embolism maintained on anticoagulation Plan The patient was seen and evaluated Chest x-ray, medications and labs reviewed Continue Zosyn and fluconazole for now Will most likely require a PEG tube insertion However would recommend palliative care/hospice Currently a DO NOT RESUSCITATE/DO NOT INTUBATE CODE STATUS We will continue to follow I have personally seen and examined the patient, performed the documentation and the assessment and plan as written. Number of minutes spent on the visit: 10.
[2022-06-19] MEDS: FLUCONAZOLE IN NACL,ISO-OSM 100 MG in SALINE 1 50ML.BAG IVPB SCH (17:17)
[2022-06-19] MEDS: TAMSULOSIN 0.4 MG CAP.ER.24H PO SCH (19:38)
[2022-06-19] MEDS: DRY MOUTH SPRAY 44.3 SPRAY/44.3 ML SPRAY MUCOUS MEM PRN (22:34)
[2022-06-20] MEDS: PIPERACILLIN-TAZOBACTAM 3.375 GM in SODIUM CHLORIDE 0.9% 100 ML IVPB SCH ×2 (00:41→10:21)
--- NOTE | 2022-06-20 03:05 | P.PN ---
Subjective Progress Note Date: 06/19/22 Patient is a pleasant 87-year-old male with his known history of COPD was brought in because of shortness of breath. Patient does use oxygen at home. Unable to get much of the history is not confused because of his weakness he is unable to provide much of the history from the patient. Patient has diffuse infiltrate bilaterally which can be secondary to either pneumonia or CHF but patient BNP is only around 400 patient is coughing patient does have leukocytosis with highly elevated white blood cell count of 4 24,000 patient doesn't have any JVD doesn't have any history of congestive heart failure. Patient was started on Rocephin and azithromycin, inhalational treatments. Does have history of pulmonary embolism for which patient is on eliquis. 06/17/2022 Patient the is presently nothing by mouth will be evaluated by speech therapy. Patient does have a oral ulcerations once he is able to tolerate oral diet patient will be started on vitamin B supplementation today patient is presently receiving symptomatic treatment for pain from these ulcers. Patient has hypochloremia and hyponatremia because of which IV fluids are being switched to D5 water patient has leukocytosis no labs from today morning. 06/18/2022 Patient looks bit better today awaiting PEG tube placement and the speech therapy evaluation tomorrow still has some bilateral rhonchi on lung exam. Patient denied any pain potassium will be replaced 06/19/2022 Patient is seen and evaluated in follow-up today with son at the bedside. Patient was evaluated by speech therapy and has severely decreased dysfunction of swallowing and difficulty to initiate the process and also significantly high risk for aspiration yielded on secretions. Speech therapy not recommending PEG tube placement and appears to be at end-of-life transition. Patient apparently was on hospice and graduated and family at the bedside requesting hospice consult. Discussion of possible PEG tube placement at initially agreeable to surgical consult although felt inappropriate given his overall clinical decline. Son would like to take the patient home with hospice services. [facility] consulted. Patient is afebrile denies shortness of breath, continues with mouth sores and maintained on fluconazole. Patient is also followed by pulmonary and maintained on IV antibiotics. Sodium is elevated at 149 as well and maintained on D5 water recommend follow-up plans. Will discuss with case management and hospice about discharge planning. Review of systems: Unable to obtain due to his clinical condition PHYSICAL EXAMINATION: GENERAL: The patient is drowsy sleepy unable to assess his orientation, not in any acute distress. Well developed, well nourished. HEENT: Pupils are round and equally reacting to light. EOMI. No scleral icterus. No conjunctival pallor. Normocephalic, atraumatic. No pharyngeal erythema. No thyromegaly. CARDIOVASCULAR: S1 and S2 present. No murmurs, rubs, or gallops. PULMONARY: Diminished breath sounds bilaterally with some scattered rhonchi noted ABDOMEN: Soft, thin, cachectic, bowel sounds noted, nontender MUSCULOSKELETAL: No joint swelling or deformity. EXTREMITIES: No cyanosis, clubbing, or pedal edema. NEUROLOGICAL: Gross neurological examination did not reveal any focal deficits. Diffusely weak SKIN: No rashes. Assessment: -Acute hypoxic respiratory failure: Secondary to COPD exacerbation and pneumonia. Patient has a right lower lobe infiltrate with concerns of aspiration pneumonia and patient is unable to swallow at this time patient is on Zosyn -Severe dysphasia as noted by speech therapy with high risk for aspiration -Dehydration for which patient is on IV fluids -Hypovolemic hypernatremia for which patient will be on D5 water -Non-anion gap metabolic acidosis secondary to hyperchloremia -History of pulmonary embolism for which patient will be continued on antico agulation -leukocytosis secondary to pneumonia as mentioned above -COPD with mild acute exacerbation -History of lung and liver cancer which is in remission -DVT prophylaxis: On anti-correlation as mentioned above -No code Plan: Recommend to continue with antibiotic and IV fluids Sodium is elevated at 149 and maintained on D5 water will follow-up with repeat labs. Patient with significant dysphagia and difficulty swallowing with high risk for aspiration recommend continue nothing by mouth and mouth care Speech therapy evaluated the patient recommending no PEG tube as he is extremely high risk for aspirations even on secretions Son at the bedside requesting hospice services consult and with [facility] hospice and agreeable to take the patient home with hospice services after [place] is delivered tomorrow Will follow-up with repeat labs with possible discharge in 24 hours Overall prognosis remains poor and guarded. The impression and plan of care has been dictated by Maureen Johnson, Nurse Practitioner as directed. Dr. Bipin MD I have performed a history and examination and MDM of this patient, discussed the same with the dictator, and agree with the dictator's assessment and plan as written ,documented as a scribe. Based on total visit time, I have performed more than 50% of the visit. Objective - Vital Signs Vital signs: Vital Signs Temp 98.3 F 06/19/22 14:00 Pulse 95 06/19/22 14:00 Resp 24 06/19/22 14:00 BP 113/72 06/19/22 14:00 Pulse Ox 92 L 06/19/22 14:00 FiO2 Intake & Output 06/18/22 06/19/22 06/19/22 18:59 06:59 18:59 Output Total 1 Balance -1 Output: Stool 1 Other: Voiding Method Diaper Diaper Incontinent Incontinent # Voids 2 4 2 # Bowel Movements 1 - Labs CBC & Chem 7: 06/19/22 03:43 06/19/22 03:43 Labs: Abnormal Lab Results - Last 24 Hours (Table) 06/18/22 06/19/22 06/19/22 Range/Units 16:45 00:07 03:43 WBC 13.79 H (4.50-10.00) X 10*3/uL Hgb 11.9 L (13.0-17.0) g/dL Hct 38.6 L (39.6-50.0) % MCH 26.5 L (27.0-32.0) pg MCHC 30.8 L (32.0-37.0) g/dL RDW 15.0 H (11.5-14.5) % Immature Gran # 0.07 H (0.00-0.04) X 10*3/uL Neutrophils # 11.24 H (1.80-7.70) X 10*3/uL Monocytes # 1.23 H (0.20-1.00) X 10*3/uL Sodium (135-145) mmol/L Chloride (96-109) mmol/L BUN (9.0-27.0) mg/dL BUN/Creatinine Ratio (12.00-20.00) Ratio POC Glucose (mg/dL) 127 H 133 H (70-110) mg/dL 06/19/22 06/19/22 06/19/22 Range/Units 03:43 06:12 11:40 WBC (4.50-10.00) X 10*3/uL Hgb (13.0-17.0) g/dL Hct (39.6-50.0) % MCH (27.0-32.0) pg MCHC (32.0-37.0) g/dL RDW (11.5-14.5) % Immature Gran # (0.00-0.04) X 10*3/uL Neutrophils # (1.80-7.70) X 10*3/uL Monocytes # (0.20-1.00) X 10*3/uL Sodium 149 H (135-145) mmol/L Chloride 115 H (96-109) mmol/L BUN 27.3 H (9.0-27.0) mg/dL BUN/Creatinine Ratio 45.50 H (12.00-20.00) Ratio POC Glucose (mg/dL) 121 H 127 H (70-110) mg/dL Microbiology - Last 24 Hours (Table) 06/16/22 04:30 Blood Culture - Preliminary Blood No Growth after 72 hours 06/16/22 04:15 Blood Culture - Preliminary Blood No Growth after 72 hours
[2022-06-20 04:03] VITALS: RESP 24
[2022-06-20 09:17] LABS: Anion Gap 10.1 mmol/L (10.00-18.00); BUN/Creat Ratio 32.29 Ratio (12.00-20.00); Blood Urea Nitrogen 22.6 mg/dL (9.0-27.0); Calcium 10.1 mg/dL (8.7-10.3); Carbon Dioxide 23.9 mmol/L (20.0-27.5); Non-African American GFR(CKD) 83.7 (60.0-200.0); Potassium 3.6 mmol/L (3.5-5.5)
[2022-06-20] MEDS: CARBIDOPA-LEVODOPA 25-100 MG 1 EACH TAB PO SCH ×2 (10:21→12:29)
[2022-06-20] MEDS: DEXTROSE 5% IN WATER 1,000 ML IV SCH (10:21)
[2022-06-20] MEDS: ENOXAPARIN 40 MG/0.4 ML SYRINGE SQ SCH (10:21)
[2022-06-20] MEDS: MAG HYDROX/AL HYDROX/SIMETH 30 ML, diphenhydrAMINE ELIXIR 75 MG, LIDOCAINE VISCOUS 2% 3... PO SCH ×3 (10:22)
[2022-06-20] MEDS: IPRATROPIUM-ALBUTEROL 3 ML NEB INHALATION SCH ×2 (11:16)
--- NOTE | 2022-06-20 12:25 | P.PN ---
Subjective Progress Note Date: 06/20/22 Principal diagnosis: pneumonia, hypoxia 87-year-old male patient, presented to the also because of generalized weakness, generalized lethargy, debility, dementia intake, as the patient has not been able to eat for the past 5-6 days, extensive oral dryness and worsening shortness of breath. He is known to have COPD. He was diagnosed having a hepatic cancer back in [place] several years ago and the patient has been treated with immunotherapy utilizing Keytruda and subsequently the patient was found to have a nodule in the lung treated by SBRT. The patient's treatment has been through [facility] where the patient has been receiving infusions every 3 weeks. He is presenting with difficulty in swallowing and worsening shortness of breath. The [place] was at 24 with a hemoglobin of 14.9 and a sodium level is at 146 with a chloride of 111 and a bicarb of 18 with a BUN of 34 with a creatinine of 0.7. Troponins are negative. ProBNP level is 439. Chest x-ray showing patchy pulmonary infiltrates bilaterally, loss in the right, and there is extensive patchy airspace disease and atelectatic changes in the mid and lower lung andujar bilaterally along with various areas of groundglass pulmonary infiltrates. He seems to be quite debilitated. He has a stage II sacral decubitus ulceration. On 06/17/2022, the patient has no specific complaints. The patient is gradually being hydrated. No changes condition in general. Remains extremely lethargic debilitated and the patient continues to have nothing foot orthopedist. He does have some or laceration start the patient on Diflucan. He is also on IV Zosyn. 06/18/2022, no changes in his overall condition. Unable to follow. Unable to take any form of oral intake. Has mucositis. Mucous membranes remain dry. He is lethargic. No signs of any respiratory distress. Remains on accommodation of Diflucan and Zosyn. Very much debilitated with known history of liver cancer as mentioned in my consultation note. Patient remains on IV fluids. Blood work is to be repeated. The patient is seen today 06/19/2022 in follow-up on the regular medical floor. He is not communicating verbally. He has issues with chronic dysphagia and difficulty swallowing. He also has multiple oral mucosal ulcers from his [place] truda. Blood cultures reveal no growth. White count 13.7. Hemoglobin 11.9. Platelets 211. Sodium 149. Potassium 4.1. BUN 27. Creatinine 0.6. Glucose 108. He is maintaining O2 saturations in the 90s on 3 L/m per nasal cannula. He is continued on DuoNeb inhalations. Antibiotics in the form of Zosyn. Initiated on fluconazole. Lovenox for anticoagulation. I'm evaluating this patient today on 06/20/2022 on a regular medical floor. He continues to be nonverbal. Apparently the plan is to discharge with hospice. Patient is laying in bed on room air in no obvious distress. No repeat chest x- ray or CBC to review. Blood cultures continue to be negative. BMP reveals sodium of 147, potassium 3.6 chloride 113, serum CO2 24, BUN 23, creatinine 0.7, glucose 110. D5W at 75 ML's per hour is infusing. Patient continues to be nothing by mouth due to aspiration. Patient is covered on empiric Zosyn and fluconazole. He remains afebrile. Also receiving 4 times a day DuoNeb inhalations. Lovenox for DVT prophylaxis. Objective - Vital Signs Vital signs: Vital Signs Temp 97.4 F L 06/20/22 08:00 Pulse 92 06/20/22 11:27 Resp 24 06/20/22 08:00 BP 96/53 06/20/22 08:00 Pulse Ox 95 06/20/22 11:20 FiO2 21 06/19/22 21:24 Intake & Output 06/19/22 06/20/22 06/20/22 18:59 06:59 18:59 Other: Voiding Method Diaper Diaper Incontinent Incontinent # Voids 1 4 # Bowel Movements 1 2 - Exam GENERAL EXAM: Obtunded, frail, cachectic 87-year-old male, on room air, fairly comfortable in no apparent distress. HEAD: Normocephalic. EYES: Normal reaction of pupils, equal size. NOSE: Clear with pink turbinates. THROAT: No erythema or exudates. Mucosa is dry NECK: No masses, no JVD. CHEST: No chest wall deformity. LUNGS: Equal air entry with scattered rhonchi, diminished in the bases. CVS: S1 and S2 normal with no audible murmur, regular rhythm. ABDOMEN: No hepatosplenomegaly, normal bowel sounds, no guarding or rigidity. SPINE: No scoliosis or deformity SKIN: Small 1 x 1 cm sacral decubitus ulcer, stage II CENTRAL NERVOUS SYSTEM: Chronic dysphagia, altered mental status, tone is normal in all 4 extremities. EXTREMITIES: There is no peripheral edema. No clubbing, no cyanosis. Peripheral pulses are intact. - Labs CBC & Chem 7: 06/19/22 03:43 06/20/22 05:53 Labs: Abnormal Lab Results - Last 24 Hours (Table) 06/20/22 Range/Units 05:53 Sodium 147 H (135-145) mmol/L Chloride 113 H (96-109) mmol/L BUN/Creatinine Ratio 32.29 H (12.00-20.00) Ratio Microbiology - Last 24 Hours (Table) 06/16/22 04:30 Blood Culture - Preliminary Blood No Growth after 96 hours 06/16/22 04:15 Blood Culture - Preliminary Blood No Growth after 96 hours Assessment and Plan Assessment: Acute hypoxic respiratory failure with bilateral airspace disease and interstitial infiltrates and masslike consolidation involving the right lung base. Consider aspiration pneumonia. The patient also has received radiation therapy/SBRT the pulmonary nodule possibly on the right based on my evaluation. Currently, on room air. Findings is highly suspicious for an underlying asp iration pneumonia. He is known to have chronic dysphagia. He has failed swallow evaluation in the past. Would most likely require a PEG tube insertion for further treatment. Acute dehydration, improving Acute hyperchloremic hypernatremia, the sodium level is down to 147. Leukocytosis, improving Mucositis, currently on Diflucan Chronic dysphagia and aspiration Liver cancer, metastatic and the patient has been treated with Ketruda Metastatic pulmonary lesion, treated with SBRT Chronic debility, weight loss, generalized weakness, malnourishment, body mass index of 22.2 Previous history of DVT and pulmonary embolism maintained on anticoagulation Plan: The patient was seen and evaluated Chest x-ray, medications and labs reviewed Continue Zosyn and fluconazole for now Will most likely require a PEG tube insertion for further treatment Currently a DO NOT RESUSCITATE/DO NOT INTUBATE CODE STATUS Plan is to discharge on hospice today I have personally seen and examined the patient, performed the documentation and the assessment and plan as written. Number of minutes spent on the visit: [ 10]. Time with Patient: Less than 30
[2022-06-20 14:58] VITALS: BP 109/70; PULSE 101; TEMP 98.7
--- NOTE | 2022-06-21 05:03 | P.DS ---
Providers Date of admission: 06/16/22 04:03 Expected date of discharge: 06/20/22 Attending physician: Magali Drake Consults: 06/16/22 04:03 Consult Physician Routine Consulting Provider: Dustin Calloway Consult Reason/Comments: chf Do you want consulting provider notified?: Yes 06/16/22 13:09 Consult Physician Routine Consulting Provider: Kurt Kemp Consult Reason/Comments: Pneumonia, COPD Do you want consulting provider notified?: Yes Primary care physician: [address]per [address] Hospital Course: Final diagnosis -Acute hypoxic respiratory failure: Secondary to COPD exacerbation and pneumonia. Concerns for aspiration pneumonia -Severe dysphasia as noted by speech therapy with high risk for aspiration -Dehydration due to poor oral intake -Hypovolemic hypernatremia -Non-anion gap metabolic acidosis secondary to hyperchloremia -History of pulmonary embolism -leukocytosis secondary to pneumonia as mentioned above -COPD with mild acute exacerbation -History of lung and liver cancer which is in remission -DVT prophylaxis -No code Discharge disposition Patient is being discharged in a stable condition with guarded prognosis to home with [facility] services. Patient will follow-up with PCP in the outpatient setting upon discharge. Patient is to continue with [facility] hospice. Total time taken is greater than 35 minutes. Hospital course This is a 87-year-old male who was recently admitted with shortness of breath, COPD exacerbation and pneumonia. Patient is high risk for aspiration and has been choking and unable to tolerate oral intake. Patient with severe dehydration and unable to tolerate oral intake. Patient was evaluated by speech recommending comfort care hospice and not recommending PEG tube is patient is high risk for aspiration even on oral secretions. [place] with [facility] for comfort measures and wants to take the patient home to make him comfortable. Currently no reports of chest pain, shortness of breath, or palpitations. Patient is afebrile. No reports of nausea or vomiting. Patient will be going to home with hospice services today. Overall prognosis is poor and guarded Physical exam: Gen: This is a 87-year-old male who was thin built, cachectic, ill-appearing, appears in no acute distress, lethargic but arousable and follows asleep easily HEENT: Head is atraumatic, normocephalic. Pupils equal, round. Sclerae is anicteric. NECK: Supple. No JVD. No lymphadenopathy. No thyromegaly. LUNGS: Diminished breath sounds bilaterally. No wheezes, scattered rhonchi. No intercostal retractions. HEART: Regular rate and rhythm. No murmur. ABDOMEN: Soft. Bowel sounds are present. No masses. No tenderness. EXTREMITIES: No pedal edema. No calf tenderness. NEUROLOGICAL: Patient is sleeping but arousable, alert and oriented x2. Diffusely weak Please refer to medication reconciliation sheet for a list of medications. The impression and plan of care has been dictated by Maureen Johnson, Nurse Practitioner as directed. MD Hua I have performed a history and examination and MDM of this patient, discussed the same with the dictator, and agree with the dictator's assessment and plan as written ,documented as a scribe. Based on total visit time, I have performed more than 50% of the visit. Patient Condition at Discharge: Fair Plan - Discharge Summary Discharge Rx Participant: Yes New Discharge Prescriptions: New Mag Hydrox/Al Hydrox/Simeth [Maalox] 30 ml PO TID ml Ipratropium-Albuterol Nebulize [Duoneb 0.5 mg-3 mg/3 ml Soln] 3 ml INHALATION RT-QID each Lidocaine Viscous 2% [Xylocaine Viscous] 30 ml PO TID ml Continue Ipratropium-Albuterol Nebulize [Duoneb 0.5 mg-3 mg/3 ml Soln] 3 ml INHALATION RT-QID PRN PRN Reason: Shortness Of Breath Discontinued Albuterol Sulfate [Albuterol Sulfate Hfa] 2 puff INHALATION RT-Q6H PRN PRN Reason: Shortness Of Breath Vitamin A Acetate [Vitamin A] 10,000 unit PO W/LUNCH Carbidopa/Levodopa [Sinemet 25-100 mg Tablet] 2 tab PO QID Apixaban [Eliquis] 5 mg PO BID Cholecalciferol [Vitamin D3 (25 Mcg = 1000 Iu)] 100 mcg PO DAILY Ferrous Sulfate [Iron (65 MG Elemental)] 650 mg PO DAILY [place]-3 Fatty Acids/Fish Oil [Fish Oil 1,000 mg Softgel] 1 cap PO W/LUNCH Tamsulosin HCl [Flomax] 0.4 mg PO HS Discharge Medication List Ipratropium-Albuterol Nebulize [Duoneb 0.5 mg-3 mg/3 ml Soln] 3 ml INHALATION RT-QID PRN 06/16/22 [History] Ipratropium-Albuterol Nebulize [Duoneb 0.5 mg-3 mg/3 ml Soln] 3 ml INHALATION RT-QID each 06/20/22 [Rx] Lidocaine Viscous 2% [Xylocaine Viscous] 30 ml PO TID ml 06/20/22 [Rx] Mag Hydrox/Al Hydrox/Simeth [Maalox] 30 ml PO TID ml 06/20/22 [Rx] Follow up Appointment(s)/Referral(s): [address] DO [Primary Care Provider] - 1-2 days [facility]osp[facility] [NON-STAFF] - As Needed Activity/Diet/Wound Care/Special Instructions: Patient is going home with [facility] hospice services Continue with comfort measures per hospice Discharge Disposition: HOME WITH HOSPICE
--- NOTE | 2022-06-29 05:45 | CDI ---
Documentation Clarification Form Date: 06/29/22 Admit Date: 06/16/2022 04:03:00 AM Patient Name: Grady Carl Visit Number: [id number] Discharge Date: 06/20/2022 03:35:00 PM ATTENTION: The Clinical Documentation Specialists (CDI) and [facility] Coding Staff appreciate your assistance in clarifying documentation. Please respond to the clarification below the line at the bottom and electronically sign. The CDI & [facility] Coding staff will review the response and follow-up if needed. Please note: Queries are made part of the Legal Health Record. If you have any questions, please contact the author of this message via ITS. Dr. Sonia Voss, Malnutrition is documented in Dr Kemp's consult and subsequent PNs along with Dr Starkey subsequent PNs. Additional clarification regarding the severity of malnutrition is requested. History/Risk Factors: Acute hypoxic respiratory failure: Secondary to COPD exacerbation and pneumonia, concerns for aspiration pneumonia, Severe dysphasia, dehydration, hypovolemic hypernatrema, non-anion gap metabolic acidosis secondary to hyperchloremia, COPD with mild acute exacerbation, hx of lung and liver cancer in remission, Stage II PIPU to coccyx Clinical Indicators: Extensively debilitated, malnourished, body mass index 22.2. Current BMI: 22.1 Insufficient energy intake: Increase protein needs Weight Loss: Difficulty swallowing, underfeeding, aspiration Speech therapy consult: Pt in severely debilitated state and aphonic at bedside. Multiple oral ulcers were noted along anterior lingual blade. Pt had just finished a course of Keytruda and ulcers were likely r/t this medication. Pt was judged at high risk for aspiration event with all presented consistencies. Rehab potential is fair. Treatment: High protein diet, advance diet as appropriate per speech therapist recommendation Total Protein: 6.2 Albumin: 3.2 Patient discharged to home with hospice. Please clarify the type of malnutrition, if known: [ ] Mild Protein-Calorie Malnutrition [ ] Moderate Protein-Calorie Malnutrition [ ] Severe Protein-Calorie Malnutrition [ ] Malnutrition, unspecified [ ] Other condition, please specify [ ] Unable to Determine MTDD
--- NOTE | 2022-07-04 10:48 | CDI ---
Documentation Clarification Form Date: 06/28/2022 01:27:00 PM From: Alba Pandey Admit Date: 06/16/2022 04:03:00 AM Patient Name: Grady Carl Visit Number: [id number] Discharge Date: 06/20/2022 03:35:00 PM ATTENTION: The Clinical Documentation Specialists (CDI) and [facility] Coding Staff appreciate your assistance in clarifying documentation. Please respond to the clarification below the line at the bottom and electronically sign. The CDI & [facility] Coding staff will review the response and follow-up if needed. Please note: Queries are made part of the Legal Health Record. If you have any questions, please contact the author of this message via ITS. Dr. Sonia Voss, Malnutrition is documented in Dr Kemp's consult and subsequent PNs along with Dr Starkey subsequent PNs. Additional clarification regarding the severity of malnutrition is requested. History/Risk Factors: Acute hypoxic respiratory failure: Secondary to COPD exacerbation and pneumonia, concerns for aspiration pneumonia, Severe dysphasia, dehydration, hypovolemic hypernatrema, non-anion gap metabolic acidosis secondary to hyperchloremia, COPD with mild acute exacerbation, hx of lung and liver cancer in remission, Stage II PIPU to coccyx Clinical Indicators: Extensively debilitated, malnourished, body mass index 22.2. Current BMI: 22.1 Insufficient energy intake: Increase protein needs Weight Loss: Difficulty swallowing, underfeeding, aspiration Speech therapy consult: Pt in severely debilitated state and aphonic at bedside. Multiple oral ulcers were noted along anterior lingual blade. Pt had just finished a course of Keytruda and ulcers were likely r/t this medication. Pt was judged at high risk for aspiration event with all presented consistencies. Rehab potential is fair. Treatment: High protein diet, advance diet as appropriate per speech therapist recommendation Total Protein: 6.2 Albumin: 3.2 Patient discharged to home with hospice. Please clarify the type of malnutrition, if known: [ ] Mild Protein-Calorie Malnutrition [ x] Moderate Protein-Calorie Malnutrition [ ] Severe Protein-Calorie Malnutrition [ ] Malnutrition, unspecified [ ] Other condition, please specify [ ] Unable to Determine MTDD
== END 2022-06-20 15:35 | disposition hospice, home (50) | DRG 177 ==
LOC: EC 02:04 → 4SSUR 04:03
PROVIDERS: ADMIT Hospitalist; ATTEND Hospitalist
DX: J69.0 Pneumonitis due to inhalation of food and vomit (principal); J96.01 Acute respiratory failure with hypoxia; E44.0 Moderate protein-calorie malnutrition; R64 Cachexia; E87.0 Hyperosmolality and hypernatremia; E87.20 Acidosis, unspecified; C78.01 Secondary malignant neoplasm of right lung; J44.1 Chronic obstructive pulmonary disease with (acute) exacerbation; J44.0 Chronic obstructive pulmonary disease with (acute) lower respiratory infection; C22.9 Malignant neoplasm of liver, not specified as primary or secondary; L89.152 Pressure ulcer of sacral region, stage 2; F03.90 Unspecified dementia, unspecified severity, without behavioral disturbance, psychotic disturbance, mood disturbance, and anxiety; Z66 Do not resuscitate; Z51.5 Encounter for palliative care; E87.8 Other disorders of electrolyte and fluid balance, not elsewhere classified; E86.0 Dehydration; E86.1 Hypovolemia; I45.10 Unspecified right bundle-branch block; R47.02 Dysphasia; I08.1 Rheumatic disorders of both mitral and tricuspid valves; I44.0 Atrioventricular block, first degree; K12.30 Oral mucositis (ulcerative), unspecified; N40.0 Benign prostatic hyperplasia without lower urinary tract symptoms; R32 Unspecified urinary incontinence; Z79.01 Long term (current) use of anticoagulants; Z68.22 Body mass index [BMI] 22.0-22.9, adult; Z79.899 Other long term (current) drug therapy; Z86.711 Personal history of pulmonary embolism; Z86.718 Personal history of other venous thrombosis and embolism; Z87.891 Personal history of nicotine dependence; Z88.2 Allergy status to sulfonamides
CPT/HCPCS: 36415; 71045; 80048; 80053; 83735; 83880; 84100; 84484; 85025; 85027; 85610; 85730; 87040; 93005; 93306; 94640; 94760; 96361; 96365; 96368; 96375; 99291